=== PATIENT | male | born 2000 | race Caucasian/White ===

== ENCOUNTER 2023-03-16 14:58 | Emergency (ER) | payer MEDICAID, SELFPAY ==
[2023-03-16 14:59] VITALS: BP 154/84; PULSE 100; RESP 16; TEMP 36.6; O2SAT 100; BMI 48.3
--- NOTE | 2023-03-16 15:12 | EX.ED.DYSGE1 ---
HPI History of Present Illness Chief Complaint: Rash Detail of Chief Complaint: Rash Informant: patient Narrative Narrative: Patient presents the emergency department with complaint of a rash to her right arm as well as her back and left hand. Patient initially noticed a small red area on her right wrist yesterday. Today she noticed more lesions. They are pruritic. She tells me that she is currently staying at a hotel that probably is not the nicest hotel as they recently moved here from [place]. She is concerned about bedbugs but has not visualized or seen any bedbugs. She is not sure if this could be another insect or mosquito or fleas. She thought I might be able to tell based on the pattern. Patient otherwise has no medical history. Prior similar symptoms: No PFSH PFSH Medical History no medical history Allergy/AdvReac Type Severity Reaction Status Date / Time codeine Allergy Rash Verified 03/16/23 15:01 Surgical History no surgical history Social History Smoking Status: Never smoker ROS ROS ED Review of Systems ROS Unobtainable: other Constitutional Constitutional ED: Reports lethargy; Denies chills, fever(s), sweats or weight loss Eyes Eyes: Denies blurry vision, change in vision or diplopia ENT ENT ED: Denies rhinorrhea or sore throat Cardiovascular Cardiovascular: Denies chest pain, orthopnea or racing heartbeat Respiratory/Chest Respiratory/Chest: Denies cough, dyspnea, dyspnea on exertion, orthopnea or sputum Gastrointestinal Gastrointestinal: Denies abdominal pain, diarrhea, nausea or vomiting Genitourinary Genitourinary ED: Denies dysuria, hematuria or urinary frequency Musculoskeletal Musculoskeletal: Denies arthralgias, back pain, myalgias or neck pain Integumentary Reports rash; Denies abscess or Abrasions Neurologic Neurologic: Denies headache(s) or weakness Psychiatric Psychiatric: Denies anxiety, depression or suicidal thoughts Endocrine Endocrinology: Denies polydipsia, polyphagia or polyuria Hematologic/Lymphatic Hematologic/Lymphatic: Denies easy bleeding, easy bruising or lymphadenopathy Allergic/Immunologic Allergic/Immunologic ED: Denies mouth swelling, tongue swelling or urticaria EXAM Physical Exam Const Vital Signs: 03/16/23 14:59 Temperature 97.9 F Temperature Source Temporal Pulse Rate 100 Respiratory Rate 16 Blood Pressure 154/84 H Blood Pressure Mean 107 Pulse Ox 100 Oxygen Delivery Method Room Air Positive well nourished and well developed General Appearance ED: well developed and NAD HEENT Reports TM's clear and moist mucous membranes normocephalic and atraumatic; Negative for trauma or tenderness Tympanic Membrane ED: Yes TM's clear Eyes PERRL and EOMs intact bilaterally General Eye ED: Negative for pale conjunctiva or scleral icterus Neck no lymphadenopathy, supple and no JVD General: Negative for tenderness Chest Wall inspection of chest normal and palpation of chest normal Chest: Negative for tenderness Resp normal respiratory effort and clear to auscultation bilaterally Effort and Inspection: Negative for respiratory distress or pain with movement Auscultation: Negative for rhonchi, wheezes or diminished lung sounds Cardio regular rate, regular rhythm, S1 normal heart sound, S2 normal heart sound and no murmurs Peripheral Pulses: pulses 2+ throughout GI normal to inspection, nondistended, normoactive bowel sounds, soft to palpation, non-tender, non-distended and no masses Back/Spine no CVA tenderness and no thoracic nor lumbar tenderness Extremity General Extremety ED: Negative for edema General Extremity: Negative for edema Neuro oriented x3, CN's II-XII intact bilaterally, no sensory deficits noted and gait normal Sensorium / Orientation: awake, alert, oriented to person, oriented to place and oriented to time Motor Exam: strength 5/5 throughout and strength abnormal Psych mental status grossly normal Skin no wounds Skin Narrative: Patient has several red raised lesions involving the wrist of the right upper extremity as well as a small lesion on her left hand. Patient has 2 lesions on her back that are red and raised measuring approximately 1 cm in diameter. Clinically suspect insect bites as they are inflamed patient. No evidence of cellulitis. MDM MDM MDM Narrative Medical decision making narrative: Patient has what I suspect are insect bites to the right wrist and back and left hand. I do not feel antibiotics are indicated. She is advised to use Benadryl for the itching. She is advised to wash all her clothes in hot water and potentially find a new hotel to stay in. Advised to return if fever or increased erythema or cellulitic changes or condition worsening way. Patient given primary care physician follow-up to follow-up within the next 5 to 7 days. Discharge Plan Triage Chief Complaint: Rash ED Provider: Derek Flores Dx/Rx/DC Orders Clinical Impression: Insect bite Instructions: ED Insect Bite Primary Care Provider: [facility] Doctor,Out of Referrals: Bon French MD [Med Staff - Active Staff] - 3-5 Days [facility] Doctor,Out of [Primary Care Provider] - Disposition Disposition: Home, Self Care
== END 2023-03-16 15:29 | disposition home or self-care (01) ==
LOC: ED 15:28
PROVIDERS: Emergency Provider Emergency Medicine; Visit Provider Emergency Medicine
DX: S60.861A Insect bite (nonvenomous) of right wrist, initial encounter (principal); S60.562A Insect bite (nonvenomous) of left hand, initial encounter; W57.XXXA Bitten or stung by nonvenomous insect and other nonvenomous arthropods, initial encounter
CPT/HCPCS: 99282

== ENCOUNTER 2023-05-18 02:00 | Emergency (ER) | payer MEDICAID, SELFPAY ==
[2023-05-18 02:02] VITALS: BP 152/97; PULSE 88; RESP 16; TEMP 36.4; O2SAT 99; BMI 39.1
--- NOTE | 2023-05-18 02:21 | EDS_ITS ---
HPI History of Present Illness Chief Complaint: Allergic Reaction Narrative Narrative: Patient presents with intermittent rash. Patient states she first had rash about 2 months ago. She was seen here. Was only on the right hand a little area on her back and it was thought to be bug bites. Since that time she has had this intermittently. She will go sometimes a day or 2 without it. She will then have the rash mostly on the arms or legs. It will then go away and come back. Spots come and go and move. She has never had a single or large lesion. No trouble breathing. No nausea vomiting bowel or bladder complaints. No medications. 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 She is new to the area. They had moved up from [place] and are staying in a hotel. She has not seen bedbugs. When the lesions are present they do itch. She tried Benadryl once but does not think it really made a difference. She states she is covered with them now but in the morning they may even be gone. They will then come back again in a few days. She otherwise feels fine. PFSH [facility] Medical History no medical history Home Medications prednisone 20 mg tablet 60 mg (3 x 20 mg) PO DAILY #15 TABLETS 05/18/23 [Rx Last Taken Unknown] Allergy/AdvReac Type Severity Reaction Status Date / Time codeine Allergy Rash Verified 05/18/23 02:01 Surgical History no surgical history Social History Smoking Status: Never smoker ROS ROS ED Constitutional Constitutional ED: Denies chills or fever(s) Eyes Eyes: Denies blurry vision ENT ENT ED: Denies rhinorrhea or sore throat Cardiovascular Cardiovascular: Denies palpitations Respiratory/Chest Respiratory/Chest: Denies cough Gastrointestinal Gastrointestinal: Denies diarrhea, nausea or vomiting Musculoskeletal Musculoskeletal: Denies myalgias Integumentary Reports rash; Denies abscess Neurologic Neurologic: Denies headache(s), paresthesias or weakness Endocrine Endocrinology: Denies polydipsia or polyuria Hematologic/Lymphatic Hematologic/Lymphatic: Reports anemia Allergic/Immunologic Allergic/Immunologic ED: Reports urticaria; Denies mouth swelling or tongue swelling EXAM Physical Exam Narrative Exam Narrative: Patient awake alert pleasant sitting comfortably in bed. Very nontoxic. There are no lesions visible as I walk into the room. HEENT shows no lesions. I see no intraoral lesions. No petechiae. Tonsils are normal. Neck is supple with no meningismus. Lungs are clear bilaterally. Heart is regular. Abdomen is obese but soft and nontender. Extremities show no swelling or asymmetry but there is a rash as below. Skin: Patient has multiple lesions all of which range from about 1 to 2 cm. These are really on upper and lower extremities. I see a few on her lower flank on the right and the left but there really just behind the iliac crest area. None higher up on the torso. None are vesicular. None are weeping. A few of them are almost targetoid in shape but they just have an outer rim and not a 3 toned color with central spot. But they all yohana. Some are confluent. They are all raised and palpable. None are on the palms. They are on the dorsum of the hands though. Const Vital Signs: 05/18/23 02:02 Temperature 97.5 F L Temperature Source Temporal Pulse Rate 88 Respiratory Rate 16 Blood Pressure 152/97 H Blood Pressure Mean 115 Pulse Ox 99 MDM MDM MDM Narrative Medical decision making narrative: It is certainly possible these are bedbugs as they are staying evidently in a hotel that is not the nicest. But I cannot say that for certain. They may be hives which we can treat. Erythema multiforme is possible but the pattern is not quite typical. I recommend she take Claritin for several days to a week. She should attempt having the hotel cleaned in the bug to see if that will help. I will write for short course of steroids. Keeping a journal of when these occur and timing at work and diet may be helpful. Discharge Plan Triage Chief Complaint: Allergic Reaction ED Provider: Mark Diallo Dx/Rx/DC Orders Clinical Impression: Hives Instructions: ED Hives (Adult) Prescriptions: New prednisone 20 mg tablet 60 mg PO DAILY Qty: 15 0RF Primary Care Provider: Care Physician,No Primary Referrals: Macrina Cisneros MD [Non-Staff] - As soon as possible Care Physician,No Primary [Primary Care Provider] - Disposition Disposition: Home, Self Care
[2023-05-18] MEDS: predniSONE 20 MG Tablet 60 MG PO (02:35)
== END 2023-05-18 02:35 | disposition home or self-care (01) ==
LOC: ED 02:29
PROVIDERS: Emergency Provider Emergency Medicine; Visit Provider Emergency Medicine
DX: L50.9 Urticaria, unspecified (principal)
CPT/HCPCS: 99283

== ENCOUNTER 2023-07-17 22:00 | Emergency (ER) | payer MEDICAID, SELFPAY ==
[2023-07-17 22:01] VITALS: BP 157/90; PULSE 78; RESP 16; TEMP 36.7; O2SAT 98; BMI 47.0
[2023-07-17 23:06] LABS: hCG Titer Quant., Serum < 1 mIU/mL (1-3)
--- NOTE | 2023-07-17 23:08 | ED.VIS.FEGU ---
HPI HPI - Female History of Present Illness Chief Complaint: Female C/O Informant: patient Narrative Narrative: Patient is a 23-year-old female who gave roughly 16 months ago. She states that she was on the Depo shot with her last injection coming in December of this year. She states that she is currently not on any type of control or hormones. She states that her periods are regular and that this time she is 5 to 6 days late which is extremely abnormal for her and she is concerned for especially as she is sexually active without contraception. She states that in the past urine test have never resulted positive and they have needed blood tests and with concern for this she presents for evaluation PFSH PFSH Allergy/AdvReac Type Severity Reaction Status Date / Time codeine Allergy Rash Verified 07/17/23 22:05 Surgical History no surgical history Social History Smoking Status: Never smoker ROS ROS ED Constitutional Constitutional ED: Denies chills or fever(s) ENT ENT ED: Denies sore throat Cardiovascular Cardiovascular: Denies chest pain Respiratory/Chest Respiratory/Chest: Denies cough or dyspnea Gastrointestinal Gastrointestinal: Denies abdominal pain, diarrhea, nausea or vomiting Genitourinary Genitourinary ED: Denies dysuria Musculoskeletal Musculoskeletal: Denies myalgias Integumentary Denies rash Neurologic Neurologic: Denies headache(s) Hematologic/Lymphatic Hematologic/Lymphatic: Denies easy bleeding or easy bruising EXAM Physical Exam Const Vital Signs: 07/17/23 22:01 Temperature 98.0 F Temperature Source Temporal Pulse Rate 78 Respiratory Rate 16 Blood Pressure 157/90 H Blood Pressure Mean 112 Pulse Ox 98 Oxygen Delivery Method Room Air Positive well nourished, well developed and obese General Appearance ED: well developed Nutritional Appearance: obese HEENT HEENT Narrative: Normocephalic atraumatic Eyes PERRL and EOMs intact bilaterally General Eye ED: Negative for scleral icterus Neck supple Resp normal respiratory effort and clear to auscultation bilaterally Cardio regular rate and regular rhythm GI normal to inspection, nondistended, normoactive bowel sounds, soft to palpation, non-tender, non-distended and no masses Auscultation: normoactive bowel sounds Palpation: soft Extremity normal to inspection and full ROM Neuro oriented x3, CN's II-XII intact bilaterally and no sensory deficits noted Sensorium / Orientation: alert Motor Exam: strength 5/5 throughout Psych mental status grossly normal Skin no rashes or lesions noted MDM MDM MDM Narrative Medical decision making narrative: Patient present to the ER hypertensive otherwise with stable vitals. She denied abdominal pain or vaginal discharge or dysuria. She stated she is not on any type of hormone replacement therapy. She simply is late on her menstrual cycle and has concern for . At this time differential diagnosis is for early versus dysfunctional uterine bleeding. 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 The value is less than 1 indicating patient is not and therefore she is otherwise safe for discharge. History & Record Review Discussion w/independent historian: Patient Lab Data Labs: Laboratory Results - last 24 hr 07/17/23 22:38 HCG, Quant < 1 Discharge Plan Triage Chief Complaint: Female C/O ED Provider: Abdoul Lopez Dx/Rx/DC Orders Clinical Impression: Amenorrhea, unspecified Instructions: ED Amenorrhea Primary Care Provider: Care Physician,No Primary Referrals: Rosana Escalante MD [Med Staff - Active Staff] - Care Physician,No Primary [Primary Care Provider] - Activity Restrictions/Additional Instructions: Your test/hCG value was less than 1 which is negative. Follow-up with ENVELOPE CUTTER to discuss need for potential hormone use to normalize/regulate your menstrual cycle and return to the ER should you have any further concerns. Disposition Disposition: Home, Self Care
[2023-07-17 23:13] VITALS: PULSE 69; RESP 17; O2SAT 99
== END 2023-07-17 23:16 | disposition home or self-care (01) ==
PROVIDERS: Emergency Provider Emergency Medicine; Visit Provider Emergency Medicine
DX: N91.2 Amenorrhea, unspecified (principal); E66.9 Obesity, unspecified
CPT/HCPCS: 36415; 84702; 99282

== ENCOUNTER 2023-09-18 10:53 | Emergency (ER) | payer MEDICAID, SELFPAY ==
[2023-09-18 10:54] VITALS: BP 158/100; PULSE 88; RESP 16; TEMP 36.3; O2SAT 100; BMI 43.1
--- NOTE | 2023-09-18 11:17 | US_ITS ---
STUDY: FIRST TRIMESTER OBSTETRICAL ULTRASOUND REASON FOR EXAM: Female, 23 years old early preg, bleeding LMP: August 18, 2023. TECHNIQUE: Transvaginal TECHNICAL QUALITY: Adequate. PRIOR ULTRASOUND: None. FINDINGS: There is no demonstrated intrauterine gestational sac. There is no demonstrated yolk sac. The placenta is non-visualized. There is no demonstrated embryo ( pole). The estimated gestation age (EGA) by LMP is 4 weeks, 3 days. The estimated date of delivery (ZEINAB) by LMP is May 24, 2024. The uterus measures 8.9 cm x 6.5 cm x 4.1 cm. There is no demonstrated uterine fibroid. The cervix is closed. The right ovary measures 3.1 cm x 2.8 cm x 2.6 cm. There is no right ovarian cyst. There is no visualized right adnexal mass or complex lesion. The left ovary was not visualized. There is no fluid in the cul de sac. US/Transvaginal w/Preg US IMPRESSION: No intrauterine gestation is seen. Electronically Signed: Alberto Turk MD at 14:44 EST ,
[2023-09-18 11:38] LABS: Absolute Lymphocyte Count 3.09 X10^3/uL (0.83-4.51); Absolute Neutrophil Count 5.9 X10^3/uL (2.0-7.7); Basophil# 0.04 X10^3/uL; Basophil% 0.4 % (0-1); Eosinophil# 0.02 X10^3/uL; Eosinophils% 0.2 % (0-5); Hematocrit 40.7 % (37-47); Hemoglobin 12.7 g/dL (12.0-15.0); Lymphocyte # 3.09 X10^3/ul (0.83-4.51); Lymphocyte % 31.7 % (19-41); Mean Corp Hgb Conc 31.2 g/dL (32-36); Mean Corpuscular Hgb 24.2 pg (27.0-32.0); Mean Corpuscular Volume 77.7 fL (81-99); Mean Platelet Vol. 10.4 fl (6.2-12.0); Monocyte# 0.64 X10^3/uL; Monocyte% 6.6 % (0-10); NRBC Flagged by Analyzer 0 % (0-5); Neutrophil # 5.94 X10^3/uL (2.7-7.7); Neutrophil % 60.8 % (47-70); Platelet Count 350 K/mm3 (150-450); RBC Distribution Width CV 16.3 % (11.6-14.6); Red Blood Count 5.24 M/mm3 (4.2-5.4); White Blood Count 9.8 K/mm3 (4.4-11.0)
--- NOTE | 2023-09-18 11:57 | EDS_ITS ---
HPI HPI - Female
--- NOTE | 2023-09-18 11:57 | ED.VIS.FEGU ---
HPI HPI - Female History of Present Illness Chief Complaint: Informant: patient Narrative Narrative: Patient states she missed her period 2 days ago, started spotting, so she did a home test that was positive. She denies having any pelvic/abdominal pain, syncope, systemic symptoms of any kind. She is urinating normally. Vaginal bleeding has not been heavy. She has had RhoGAM in the past. PFSH PFSH Medical History no medical history no medical history Home Medications NK 09/18/23 [History Last Taken Unknown] Allergy/AdvReac Type Severity Reaction Status Date / Time codeine Allergy Rash Verified 09/18/23 11:10 Surgical History no surgical history Social History Smoking Status: Never smoker ROS ROS ED Constitutional Constitutional ED: Denies chills or fever(s) Eyes Eyes: Denies change in vision or diplopia ENT ENT ED: Denies rhinorrhea or sore throat Cardiovascular Cardiovascular: Denies chest pain or palpitations Respiratory/Chest Respiratory/Chest: Denies cough or dyspnea Gastrointestinal Gastrointestinal: Denies abdominal pain, diarrhea, nausea or vomiting Genitourinary Genitourinary ED: Reports as per HPI, LMP (females 10-50) Details: Comment: (08/16/23) and vaginal bleeding; Denies dysuria or hematuria Musculoskeletal Musculoskeletal: Denies back pain or neck pain Integumentary Denies abscess or rash Neurologic Neurologic: Denies headache(s), paresthesias or weakness Psychiatric Psychiatric: Denies anxiety or suicidal thoughts EXAM Physical Exam Const Vital Signs: 09/18/23 10:54 Temperature 97.4 F L Temperature Source Temporal Pulse Rate 88 Respiratory Rate 16 Blood Pressure 158/100 H Blood Pressure Mean 119 Pulse Ox 100 Oxygen Delivery Method Room Air Positive well nourished, well developed and obese General Appearance ED: well developed and NAD Nutritional Appearance: obese HEENT Reports moist mucous membranes normocephalic and atraumatic Eyes PERRL and EOMs intact bilaterally Neck full ROM and supple Resp normal respiratory effort and clear to auscultation bilaterally Cardio regular rate, regular rhythm and no murmurs Rate: Negative for tachycardic GI non-tender and non-distended Auscultation: normoactive bowel sounds Palpation: soft Speculum Exam - Vagina: vaginal bleeding Back/Spine no CVA tenderness General Back: other FROM Extremity normal to inspection General Extremety ED: Negative for edema, pulses abnormal or tenderness General Extremity: Negative for edema or pulses abnormal Neuro oriented x3, CN's II-XII intact bilaterally and no sensory deficits noted Sensorium / Orientation: awake and alert Motor Exam: strength 5/5 throughout Skin no rashes or lesions noted and no wounds MDM MDM MDM Narrative Medical decision making narrative: Quantitative hCG was obtained it is only 365, transvaginal ultrasound was obtained in order to evaluate for the possibility of an ectopic as discussed with the patient which she was amenable to, I reviewed the images and the result which is basically negative, I agree with this result. This does not rule out ectopic , nor intrauterine since her quantitative hCG is so low. Her blood type is B-, therefore RhoGAM indicated and was given here in emergency department 300 mcg IM. Blood counts are good she is clinically doing well stable vital signs, discussed with Dr. Casas who is on-call for OB advises her to call the office to set up outpatient appointment and repeat 48-hour quantitative hCG, given appropriate instructions for discharge and return. Lab Data Attestation: I reviewed the patient's lab results. Labs: Laboratory Results - last 24 hr 09/18/23 11:25 WBC 9.8 RBC 5.24 Hgb 12.7 Hct 40.7 MCV 77.7 L MCH 24.2 L MCHC 31.2 L RDW Std Deviation 46.0 H RDW Coeff of Pepe 16.3 H Plt Count 350 MPV 10.4 Immature Gran % (Auto) 0.300 Neut % (Auto) 60.8 Lymph % (Auto) 31.7 [place] % (Auto) 6.6 Eos % (Auto) 0.2 Baso % (Auto) 0.4 Absolute Neuts (auto) 5.9 Absolute Lymphs (auto) 3.09 Nucleated RBC % 0 HCG, Quant 365 H Blood Type B NEGATIVE Radiography Diagnostic Testing: Clinical Impression(s) from Imaging Studies Obstetrics Ultrasound 09/18/23 11:17 IMPRESSION: No intrauterine gestation is seen. Electronically Signed: Alberto Turk MD at 14:44 EST , Management Discussion w/another healthcare provider: Health Technical Writer ([facility]) Discharge Plan Triage Chief Complaint: ED Provider: Shawn Michaud Dx/Rx/DC Orders Clinical Impression: with early threatened Instructions: ED Possible Miscarriage ... Prescriptions: No Action NK Stand Alone Forms: ED Work / School Excuse Primary Care Provider: Care Physician,No Primary Referrals: Micah Casas MD [Med Staff - Active Staff] - As soon as possible (Call for appointment to be seen by first available collection systems administrator, and to get set up for a 48-hour quantitative hCG repeat) Disposition Disposition: Home, Self Care
[2023-09-18 12:06] LABS: hCG Titer Quant., Serum 365 mIU/mL (1-3)
--- NOTE | 2023-09-18 13:12 | CM.ED ---
Social Work Per chart review, pt does not have PCP or OBGYN. SW introduced self and role to patient. SW provided support as patient is here for being newly . Pt reports uncertainty about having another child as her son is almost 2. Pt reports recently [place] and is not set up with a physician here. SW provided PCP/[facility] lists, local child and family resources, center, and [facility] list. SW did encourage patient to look into center online prior to visiting to ensure it is appropriate for her needs. SW provided emotional support. Pt denies any further SW needs at this time. Cassia Cahcko [employer] MACHINE OPERATOR, PRESS PIPE INSPECTOR
[2023-09-18 15:25] VITALS: PULSE 78; RESP 15; O2SAT 98
== END 2023-09-18 15:26 | disposition home or self-care (01) ==
PROVIDERS: Emergency Provider Emergency Medicine; Visit Provider Emergency Medicine
DX: O20.0 Threatened abortion (principal); O99.210 Obesity complicating pregnancy, unspecified trimester; E66.9 Obesity, unspecified; Z3A.00 Weeks of gestation of pregnancy not specified
CPT/HCPCS: 76817; 84702; 85025; 86900; 86901; 96372; 99283; A4216; J2790

== ENCOUNTER → 2023-09-20 | Outpatient (CLI) | payer MEDICAID, SELFPAY ==
[2023-09-20 14:04] LABS: hCG Titer Quant., Serum 724 mIU/mL (1-3)
== END | disposition home or self-care (01) ==
LOC: LAB 13:04
PROVIDERS: Referring Provider Obstetrics & Gynecology; Visit Provider Obstetrics & Gynecology
DX: O20.0 Threatened abortion (principal); Z3A.00 Weeks of gestation of pregnancy not specified
CPT/HCPCS: 36415; 84702

== ENCOUNTER 2023-10-13 23:09 | Emergency (ER) | payer MEDICAID, SELFPAY ==
[2023-10-13 23:10] VITALS: BP 141/95; PULSE 102; RESP 16; TEMP 36.6; O2SAT 100; BMI 42.5
--- NOTE | 2023-10-13 23:34 | ED.VIS.DYS ---
HPI History of Present Illness Chief Complaint: Cold Sx Informant: patient Narrative Narrative: 23-year-old female presenting to the emergency room with nasal congestion and fever. Patient states that on Friday she began to have nasal congestion sore throat fever fatigue and bodyaches. She notes decreased appetite. She reports that she is 9 weeks . She states that she is very worried because she is high risk. She believes that she is seeing [facility] for obstetrics. She notes nausea but does not wish any medicine for it. She states that multiple family members are sick with RSV. Her sister was coming to the emergency room so she came at the request of her mom. She denies any vaginal bleeding or leakage of fluid. She does note some pelvic cramping. PFSH PFSH Home Medications NK 09/18/23 [History Last Taken Unknown] Allergy/AdvReac Type Severity Reaction Status Date / Time codeine Allergy Rash Verified 10/13/23 23:12 Social History Smoking Status: Never smoker ROS ROS ED Constitutional Constitutional ED: Reports chills and fever(s); Denies weight loss Eyes Eyes: Denies change in vision or diplopia ENT ENT ED: Reports rhinorrhea and sore throat; Denies ear pain Cardiovascular Cardiovascular: Denies chest pain, orthopnea, palpitations or racing heartbeat Respiratory/Chest Respiratory/Chest: Reports cough; Denies dyspnea or orthopnea Gastrointestinal Gastrointestinal: Reports nausea; Denies abdominal pain, diarrhea or vomiting Genitourinary Genitourinary ED: Reports other Details: Pelvic cramping ; Denies dysuria, hematuria or urinary frequency Musculoskeletal Musculoskeletal: Reports myalgias; Denies arthralgias Integumentary Denies abscess or rash Neurologic Neurologic: Denies headache(s) or weakness Psychiatric Psychiatric: Denies anxiety, depression, suicidal ideation or suicidal thoughts Endocrine Endocrinology: Denies polydipsia, polyphagia or polyuria Allergic/Immunologic Allergic/Immunologic ED: Denies mouth swelling, tongue swelling or urticaria EXAM Physical Exam Const Vital Signs: 10/13/23 23:10 Temperature 97.9 F Temperature Source Temporal Pulse Rate 102 H Respiratory Rate 16 Blood Pressure 141/95 H Blood Pressure Mean 110 Pulse Ox 100 Oxygen Delivery Method Room Air Positive well nourished, well developed and obese General Appearance ED: well developed Nutritional Appearance: obese HEENT Reports normocephalic, head/scalp atraumatic and moist mucous membranes HEENT Narrative: Nasal congestion. Evidence of postnasal drip Eyes PERRL and EOMs intact bilaterally Neck no lymphadenopathy, supple and no JVD Resp normal respiratory effort and clear to auscultation bilaterally Cardio regular rate, regular rhythm and no murmurs GI normal to inspection, nondistended, normoactive bowel sounds and non-tender Palpation: soft Back/Spine no CVA tenderness and normal ROM Extremity normal to inspection General Extremety ED: Negative for edema General Extremity: Negative for edema Neuro oriented x3 and CN's II-XII intact bilaterally Sensorium / Orientation: alert Motor Exam: strength 5/5 throughout Psych mental status grossly normal Mood & Affect: Negative for depressed or tearful Skin no rashes or lesions noted and no wounds MDM MDM MDM Narrative Medical decision making narrative: Bedside ultrasound shows a single live IUP with a heart rate of 147 bpm. Clinically the patient has a viral URI. Given that most members of her family has RSV I suspect that this is that. She was given reassurance. Would recommend continued supportive care Discharge Plan Triage Chief Complaint: Cold Sx ED Provider: Froilan Singer Dx/Rx/DC Orders Prescriptions: No Action NK Primary Care Provider: Care Physician,No Primary Referrals: Care Physician,No Primary [Primary Care Provider] -
== END 2023-10-13 23:48 | disposition home or self-care (01) ==
LOC: ED 23:48
PROVIDERS: Emergency Provider Emergency Medicine; Visit Provider Emergency Medicine
DX: O99.519 Diseases of the respiratory system complicating pregnancy, unspecified trimester (principal); O99.210 Obesity complicating pregnancy, unspecified trimester; J06.9 Acute upper respiratory infection, unspecified; Z3A.00 Weeks of gestation of pregnancy not specified
CPT/HCPCS: 99282

== ENCOUNTER → 2023-10-23 | Outpatient (CLI) | payer MEDICAID, SELFPAY ==
[2023-10-23 16:20] LABS: Protein, Urine (Random) 58.4 mg/dL (<11.9); Protein:Creat Ratio 204 mg/g CRE (0-200)
[2023-10-23 16:35] LABS: Amphetamine Urine VISTA NEGATIVE (<1000 ng/mL); Barbiturate Urine VISTA NEGATIVE (< 200 ng/mL); Benzodiazepine Urine VISTA NEGATIVE (< 200 ng/mL); Cocaine Urine VISTA NEGATIVE (< 300 ng/mL); Ecstacy Urine VISTA NEGATIVE (< 500 ng/mL); Methadone Urine VISTA NEGATIVE (< 300 ng/mL); PCP Urine VISTA NEGATIVE (< 25 ng/mL); THC Urine VISTA POSITIVE (< 50 ng/mL); Vista UDS pH Range 6
[2023-10-27 22:07] LABS: Chlamydia By Nucleic Acid AMP Negative (Negative); Gonococcus By Nucleic Acid AMP Negative (Negative)
== END | disposition home or self-care (01) ==
LOC: LABSPEC 15:06
PROVIDERS: Referring Provider Advanced Practice Midwife; Visit Provider Advanced Practice Midwife
DX: Z34.90 Encounter for supervision of normal pregnancy, unspecified, unspecified trimester (principal)
CPT/HCPCS: 80307; 82570; 84156; 87086; 87088; 87491; 87591

== ENCOUNTER → 2023-11-21 | Outpatient (CLI) | payer MEDICAID, SELFPAY ==
[2023-11-21 15:24] LABS: Absolute Lymphocyte Count 2.34 X10^3/uL (0.83-4.51); Absolute Neutrophil Count 6.5 X10^3/uL (2.0-7.7); Basophil# 0.03 X10^3/uL; Basophil% 0.3 % (0-1); Eosinophil# 0.04 X10^3/uL; Eosinophils% 0.4 % (0-5); Hemoglobin 12.1 g/dL (12.0-15.0); Lymphocyte # 2.34 X10^3/ul (0.83-4.51); Lymphocyte % 24.3 % (19-41); Mean Corp Hgb Conc 31.8 g/dL (32-36); Mean Corpuscular Hgb 25.4 pg (27.0-32.0); Mean Corpuscular Volume 79.8 fL (81-99); Mean Platelet Vol. 10.1 fl (6.2-12.0); Monocyte# 0.62 X10^3/uL; Monocyte% 6.5 % (0-10); NRBC Flagged by Analyzer 0 % (0-5); Neutrophil # 6.54 X10^3/uL (2.7-7.7); Neutrophil % 68.1 % (47-70); Platelet Count 282 K/mm3 (150-450); RBC Distribution Width CV 15.5 % (11.6-14.6); RBC Distribution Width SD 44.9 fl (35.1-43.9); Red Blood Count 4.76 M/mm3 (4.2-5.4); White Blood Count 9.6 K/mm3 (4.4-11.0)
[2023-11-21 15:57] LABS: ALB/GLOB Ratio 0.6 RATIO (0.9-2.4); AST(SGOT) 24 U/L (15-37); Alanine Aminotransfer ALT/SGPT 47 U/L (13-56); Albumin, Serum 2.8 g/dL (3.2-5.0); Alkaline Phosphatase 113 U/L (45-117); Anion Gap 2 (5-15); BUN 6 mg/dL (7-18); BUN/Creat Ratio 9.5 RATIO (10-20); Calcium,Total 9.3 mg/dL (8.5-10.1); Chloride 105 mmol/L (98-107); Creatinine, Serum 0.63 mg/dL (0.55-1.02); EST Glomerular Filtration Rate 126 mL/min (>60); Est Glom Filt Rate - Afr Amer 152 mL/min (>60); Globulin 4.8 g/dL (2.2-4.2); Glucose 81 mg/dL (74-106); Potassium 3.9 mmol/L (3.5-5.1); Protein, Total 7.6 g/dL (6.4-8.2); Sodium Level 133 mmol/L (136-145)
--- OUTSIDE RECORDS SUMMARY | 2023-11-21 17:44 | XMS RPT_ITS | CCD ---
Author Name Unknown Address [address] [facility] [address] [place] [address] Organization [facility] Care Team Providers Care Thermal Technician Name Role Phone PHYSICIAN, NONE Primary Care Physician Unavailab KAMRAN Rhoades MD Attending Unavailable PHYSICIAN, NONE Primary Care Unavailable CRISTY ALEXANDER DO Attending Unavailable PHYSICIAN, NONE Primary Care Unavailable Allergies Allergy Classification Reported Allergen(s) Allergy Type Date of Onset Reaction(s) Facility (2 sources) Codeine; Translations: [codeine] Drug Allergy [facility] Medications Current Medications Medication Drug Class(es) Dates Sig (Normalized) Sig (Original) cyclobenzaprine hydrochloride 10 mg oral tablet (1 source) Muscle Relaxant Start: 08-30-2023 End: 09-04-2023 cyclobenzaprine 10 mg oral tablet Dose : 10 mg = 1 tab(s), Oral, TID, X 5 day(s), # 20 tab(s), 0 Refill(s), 09/04/23 10:50:00 AM EST Start Date: 08/30/23 Stop Date: 09/04/23 Status: Ordered predniSONE 20 mg oral tablet (1 source) Start: 05-26-2023 End: 06-01-2023 predniSONE 20 mg oral tablet Dose : 40 mg = 2 tab(s), Oral, qDay, X 6 day(s), # 12 tab(s), 0 Refill(s), 06/01/23 12:59:00 PM EDT Start Date: 05/26/23 Stop Date: 06/01/23 Status: Ordered Problems Problem Classification Problem Date Documented Da te Episodic/Chronic Other connective tissue disease (1 source) Spasm; Translations: [Other muscle spasm] Onset: 08-30-2023 Episodic Vital Signs Date Time Vital Sign Value Performing Clinician Faci lity 08-30-2023 10:45-0500 Body height 172.7 cm CRISTY ALEXANDER DO [facility] 08-30-2023 10:45-0500 Body temperature 98.78 [degF] CRISTY ALEXANDER DO [facility] 08-30-2023 10:45-0500 Body weight 136.4 kg CRISTY ALEXANDER DO [facility] 08-30-2023 10:45-0500 Diastolic Blood Pressure Non-Invasive 76 1 CRISTY ALEXANDER DO [facility] 08-30-2023 10:45-0500 Heart rate 72 /min CRISTY ALEXANDER DO [facility] 08-30-2023 10:45-0500 Respiratory rate 20 /min CRISTY ALEXANDER DO [facility] 08-30-2023 10:45-0500 Systolic Blood Pressure Non-Invasive 111 1 CRISTY ALEXANDER DO [facility] 05-26-2023 11:38-0400 Body temperature 98.06 [degF] KAMRAN BOSTON MD [facility] 05-26-2023 11:38-0400 Diastolic Blood Pressure Non-Invasive 94 1 KAMRAN BOSTON MD [facility] 05-26-2023 11:38-0400 Heart rate 73 /min KAMRAN BOSTON MD [facility] 05-26-2023 11:38-0400 Respiratory rate 16 /min KAMRAN BOSTON MD [facility] 05-26-2023 11:38-0400 Systolic Blood Pressure Non-Invasive 168 1 KAMRAN BOSTON MD [facility] Encounters Encounter Date Encounter Type Care Provider Facility Start: 08-30-2023 End: 08-30-2023 Emergency department patient visit CRISTY ALEXANDER DO Facility:B Start: 08-30-2023 End: 08-30-2023 Emergency department patient visit CRISTY ALEXANDER DO [facility] Start: 05-26-2023 End: 05-26-2023 Emergency department patient visit KAMRAN BOSTON MD Facility:B Start: 05-26-2023 End: 05-26-2023 Emergency department patient visit KAMRAN BOSTON MD [facility] Payers Date Payer Category Payer Unknown [id number] 2002 Unknown [id number] 2002 Unknown [id number] Social History Date Type Detail Facility Start: 05-26-2023 Tobacco smoking status Never s moked tobacco (finding) [facility] Sex Assigned At Female [facility] Functional Status Date Assessment Result Facility 08-30-2023 Functional Status Independent [facility] 05-26-2023 Functional Status Standard Safet y ID band on, Allergy Band on, Call device within reach, Bed in low position, Wheels locked, Bedside Cart Locked, Safety level maintained [facility] Mental Status Date Assessment Result Facility 08-30-2023 Mental Status Orientation Oriented x 4 [facility] 05-26-2023 Mental Status Orientation Oriented x 4 [facility] 05-26-2023 Mental Status [facility] Discharge instructions 08-30-2023 Note Date & Type Note Facility 08-30-2023 Hospital Discharg e instructions Patient Education 08/30/2023 10:50:43 Neck Spasm, No Trauma Neck Spasm A spasm of the neck muscles can happen after a sudden awkward neck movement. Sleeping with your neck in a crooked position can also cause spasm. Some people respond to emotional stress by tensing the muscles of their neck, shoulders, and upper back. If neck spasm lasts long enough, it can cause a headache. The treatment described below will usually help the pain to go away in 5 to 7 days. Pain that continues may need further evaluation or other types of treatment such as physical therapy. Home care Rest and relax the muscles. Use a comfortable pillow that supports the head and keeps the spine in a neutral position. The position of the head should not be tilted forward or backward. A rolled up towel may help for a custom fit. Some people find relief with heat. Heat can be applied with either a warm shower or bath or a moist towel heated in the microwave and massage. Others prefer cold packs. You can make an ice pack by filling a plastic bag that seals at the top with ice cubes or crushed ice and then wrapping it with a thin towel. Try both and use the method that feels best for 15 to 20 minutes, several times a day. Whether using ice or heat, be careful that you don't injure your skin. Never put ice directly on the skin. Always wrap the ice in a towel or other type of cloth. This is very important, especially in people with poor skin sensation. Try to reduce your stress level. Emotional stress can lead to neck muscle tension and get in the way of or delay the healing process. You may use qyse-myd-yvdityq pain medicine to control pain, unless another medicine was prescribed. If you have chronic liver or kidney disease or ever had a stomach ulcer or gastrointestinal bleeding, talk with your healthcare provider before using these medicines. Follow-up care Follow up with your healthcare provider if your symptoms don't show signs of improvement after one week. Physical therapy or further tests may be needed. If X-rays, CT scans, or MRI scans were taken, you will be told of any new findings that may affect your care. Call 911 Call 911 if you have: Sudden weakness or numbness in one or both arms or legs Neck swelling, trouble with or painful swallowing Trouble breathing Chest pain When to seek medical advice Call your healthcare provider right away if any of these occur: Pain becomes worse or spreads into one or both arms or legs Increasing headache with nausea or vomiting Fever of 100.4 F (38 C) or higher, or as directed by your healthcare provider [place]on [phone] [employer]. [address] [place] [address], [place] [address]. All rights reserved. This information is not intended as a substitute for professional medical care. Always follow your healthcare professional's instructions. Follow Up Care 08/30/2023 10:39:38 With:Call Physician Referral Address:Unknown When:2-4 days [facility] Clinical Note 08-30-2023 Note Date & Type Note Facility 08-30-2023 Note Discharge Instructions Thank you for allowing [facility] to assist you with your healthcare needs. The following is important discharge information regarding your hospital visit. Diagnosis from Today's Visit Muscle spasm of head and/or neck Neck pain What to Do Next Instructions from Your Care Team No qualifying data available. Post Acute Orders No qualifying data available. You Need to Schedule the Following Appointments Follow Up with Call Physician Referral When Within 2-4 days Allergies codeine Medications Please ask your primary doctor or pharmacist before taking any other medication not listed, including over the counter drugs, herbal medications, vitamins and or supplements as they may interact with your home medications. What How Much When Instructions Last Dose New cyclobenzaprine (cyclobenzaprine 10 mg oral tablet) 1 tab(s) by mouth Three (3) times a day Duration: 5 Days Printed Prescription Please take this list to your next doctor s visit. Bring all medications you take, including over the counter medications, herbals and other supplements with you to your doctor s visit. Patients and families are reminded to discard old lists and to update any records with all medication providers or retail pharmacies. Medication Leaflets cyclobenzaprine (nataliia welch) Amrix, Fexmid What is the most important information I should know about cyclobenzaprine? You should not use cyclobenzaprine if you have a thyroid disorder, heart block, congestive heart failure, a heart rhythm disorder, or you have recently had a heart attack. Do not use cyclobenzaprine if you have taken an MAO inhibitor in the past 14 days, such as isocarboxazid, linezolid, phenelzine, rasagiline, selegiline, or tranylcypromine. What is cyclobenzaprine? Cyclobenzaprine is a muscle relaxant. It works by blocking nerve impulses (or pain sensations) that are sent to your brain. Cyclobenzaprine is used together with rest and physical therapy to relieve muscle spasms caused by painful conditions such as an injury. Cyclobenzaprine may also be used for purposes not listed in this medication guide. What should I discuss with my healthcare provider before taking cyclobenzaprine? You should not use cyclobenzaprine if you are allergic to it, or if you have: a thyroid disorder; heart block, heart rhythm disorder, congestive heart failure; or if you have recently had a heart attack. Cyclobenzaprine is not approved for use by anyone younger than 15 years old. Do not use cyclobenzaprine if you have taken an MAO inhibitor in the past 14 days. A dangerous drug interaction could occur. MAO inhibitors include isocarboxazid, linezolid, phenelzine, rasagiline, selegiline, and tranylcypromine. Some medicines can interact with cyclobenzaprine and cause a serious condition called serotonin syndrome. Be sure your doctor knows if you also take stimulant medicine, opioid medicine, herbal products, or medicine for depression, mental illness, Parkinson's disease, migraine headaches, serious infections, or prevention of nausea and vomiting. Ask your doctor before making any changes in how or when you take your medications. Tell your doctor if you have ever had: liver disease; glaucoma; enlarged prostate; or problems with urination. It is not known whether this medicine will harm an unborn baby. Tell your doctor if you are or plan to become . It may not be safe to breast-feed while using this medicine. Ask your doctor about any risk. Older adults may be more sensitive to the effects of this medicine. How should I take cyclobenzaprine? Follow all directions on your prescription label and read all medication guides or instruction sheets. Your doctor may occasionally change your dose. Use the medicine exactly as directed. Cyclobenzaprine is usually taken once daily for only 2 or 3 weeks. Follow your doctor's dosing instructions very carefully. Swallow the capsule whole and do not crush, chew, break, or open it. Take the medicine at the same time each day. Call your doctor if your symptoms do not improve after 3 weeks, or if they get worse. Store at room temperature away from moisture, heat, and light. What happens if I miss a dose? Take the medicine as soon as you can, but skip the missed dose if it is almost time for your next dose. Do not take two doses at one time. What happens if I overdose? Seek emergency medical attention or call the Poison Help line at . An overdose of cyclobenzaprine can be fatal. Overdose symptoms may include severe drowsiness, vomiting, fast heartbeats, tremors, agitation, or hallucinations. What should I avoid while taking cyclobenzaprine? Avoid driving or hazardous activity until you know how this medicine will affect you. Your reactions could be impaired. Avoid drinking alcohol. Dangerous side effects could occur. What are the possible side effects of cyclobenzaprine? Get emergency medical help if you have signs of an allergic reaction: hives; difficult breathing; swelling of your face, lips, tongue, or throat. Stop using cyclobenzaprine and call your doctor at once if you have: fast or irregular heartbeats; chest pain or pressure, pain spreading to your jaw or shoulder; or sudden numbness or weakness (especially on one side of the body), slurred speech, balance problems. Seek medical attention right away if you have symptoms of serotonin syndrome, such as: agitation, hallucinations, fever, sweating, shivering, fast heart rate, muscle stiffness, twitching, loss of coordination, nausea, vomiting, or diarrhea. Serious side effects may be more likely in older adults. Common side effects may include: drowsiness, tiredness; headache, dizziness; dry mouth; or upset stomach, nausea, constipation. This is not a complete list of side effects and others may occur. Call your doctor for medical advice about side effects. You may report side effects to FDA at 2-667-EAN-5304. What other drugs will affect cyclobenzaprine? Using cyclobenzaprine with other drugs that make you drowsy can worsen this effect. Ask your doctor before using opioid medication, a sleeping pill, a muscle relaxer, or medicine for anxiety or seizures. Tell your doctor about all your other medicines, especially: bupropion (Zyban, for smoking cessation); meperidine; tramadol; verapamil; cold or allergy medicine that contains an antihistamine (Benadryl and others); medicine to treat Parkinson's disease; medicine to treat excess stomach acid, stomach ulcer, motion sickness, or irritable bowel syndrome; medicine to treat overactive bladder; or bronchodilator asthma medication. This list is not complete. Other drugs may affect cyclobenzaprine, including prescription and pnrd-kfm-rdfkoii medicines, vitamins, and herbal products. Not all possible drug interactions are listed here. Where can I get more information? Your pharmacist can provide more information about cyclobenzaprine. Remember, keep this and all other medicines out of the reach of children, never share your medicines with others, and use this medication only for the indication prescribed. Every effort has been made to ensure that the information provided by [employer]. ('[employer]') is accurate, up-to-date, and complete, but no guarantee is made to that effect. Drug information contained herein may be time sensitive. [employer] information has been compiled for use by healthcare practitioners and consumers in the [place] and therefore [employer] does not warrant that uses outside of the [place] are appropriate, unless specifically indicated otherwise. [employer] drug information does not endorse drugs, diagnose patients or recommend therapy. [employer] drug information is an informational resource designed to assist licensed healthcare practitioners in caring for their patients and/or to serve consumers viewing this service as a supplement to, and not a substitute for, the expertise, skill, knowledge and judgment of healthcare practitioners. The absence of a warning for a given drug or drug combination in no way should be construed to indicate that the drug or drug combination is safe, effective or appropriate for any given patient. [employer] does not assume any responsibility for any aspect of healthcare administered with the aid of information [employer] provides. The information contained herein is not intended to cover all possible uses, directions, precautions, warnings, drug interactions, allergic reactions, or adverse effects. If you have questions about the drugs you are taking, check with your doctor, nurse or pharmacist. Copyright 9978-7179 [employer]. Version: 7.01. Revision Date: 05/23/2023. Education Materials Neck Spasm A spasm of the neck muscles can happen after a sudden awkward neck movement. Sleeping with your neck in a crooked position can also cause spasm. Some people respond to emotional stress by tensing the muscles of their neck, shoulders, and upper back. If neck spasm lasts long enough, it can cause a headache. The treatment described below will usually help the pain to go away in 5 to 7 days. Pain that continues may need further evaluation or other types of treatment such as physical therapy. Home care Rest and relax the muscles. Use a comfortable pillow that supports the head and keeps the spine in a neutral position. The position of the head should not be tilted forward or backward. A rolled up towel may help for a custom fit. Some people find relief with heat. Heat can be applied with either a warm shower or bath or a moist towel heated in the microwave and massage. Others prefer cold packs. You can make an ice pack by filling a plastic bag that seals at the top with ice cubes or crushed ice and then wrapping it with a thin towel. Try both and use the method that feels best for 15 to 20 minutes, several times a day. Whether using ice or heat, be careful that you don't injure your skin. Never put ice directly on the skin. Always wrap the ice in a towel or other type of cloth. This is very important, especially in people with poor skin sensation. Try to reduce your stress level. Emotional stress can lead to neck muscle tension and get in the way of or delay the healing process. You may use ildf-ell-qrqrdws pain medicine to control pain, unless another medicine was prescribed. If you have chronic liver or kidney disease or ever had a stomach ulcer or gastrointestinal bleeding, talk with your healthcare provider before using these medicines. Follow-up care Follow up with your healthcare provider if your symptoms don't show signs of improvement after one week. Physical therapy or further tests may be needed. If X-rays, CT scans, or MRI scans were taken, you will be told of any new findings that may affect your care. Call 911 Call 911 if you have: Sudden weakness or numbness in one or both arms or legs Neck swelling, trouble with or painful swallowing Trouble breathing Chest pain When to seek medical advice Call your healthcare provider right away if any of these occur: Pain becomes worse or spreads into one or both arms or legs Increasing headache with nausea or vomiting Fever of 100.4 F (38 C) or higher, or as directed by your healthcare provider [place] [phone] [employer]. [address] [place] [address], [place] [address]. All rights reserved. This information is not intended as a substitute for professional medical care. Always follow your healthcare professional's instructions. Additional Information VACCINATE! IT SAVES LIVES! Members of the community who have not yet received the COVID-19 vaccine and would like to receive it can visit one of [facility] vaccine clinics. There are many vaccine clinic locations within the [facility]. For locations and available times, please visit www.[email or web address].[place].gov/. It is important to note that some COVID mobile vaccine clinics are held outdoors and may be canceled in rainy or stormy conditions. To learn more about pediatric vaccinations (ages 5-11), we invite you to visit the [email or web address] [facility] webpage. [email or web address]/pages/2 588-Adbkz-Jtvimfnzzyh-Frequently-Asked -Questions.html To learn more about the COVID-19 vaccine, we invite you to visit the CDC website for a list of frequently asked questions. https://www.cdc.gov/coronavirus/2019-n cov/vaccines/faq.html [facility] Patient Portal Access Instructions: Stay connected with your healthcare team and access your personal medical information anytime with the [facility] Patient Portal. If you would like a full copy of your medical records please contact the [facility] Medical Records Department Friday through Friday between 8a.m. and 4:30p.m. Please follow the directions below to access the portal: 1.Access the email account you provided upon registration to the [facility].2.Look for an invitation email from [facility].3.Open the email and access the invitation link: Accept Invitation to [facility]4.Fill in the required silva to create your account. Sign into [email or web address] with your username and password that you created in the above steps to stay up to date. You can then view a summary of results, a summary of your visits, and the ability to download your summaries to your computer or send the information securely to a physician. Remember that your healthcare information is confidential, so carefully consider who you will allow to register on the [facility] Patient Portal for access to your information. You can also access the [email or web address] [facility] Patient Portal on the [employer]. Simply click on Health Records under Health Data and then click on the [email or web address] logo. HOW TO SAFELY DISPOSE OF PRESCRIPTION MEDICATIONS Please use one of the following methods to safely dispose of your unused medications. 1.Use a drug disposal kit: the drug disposal pouch allows you to safely discard your old and unused drugs. Ask your nurse to give you one when you are discharged.2.Visit a local take-back location: Many local pharmacies and police departments have programs that collect old and unwanted prescription drugs. Call your local pharmacy or go to http://Wavecraft.WeWork/4J1Iq3f to find one close to you.3.Make use of household items: Use cat litter or old coffee grounds to dispose medications if other options are not available. Mix your drugs with these household products, seal them in an airtight container and throw it into the garbage. Call [facility]: [phone] to be sure your drugs can be disposed of in this way. Some medicines may require a different approach.4.Never flush your medications down the toilet. IF YOU HAVE BEEN PRESCRIBED AN OPIOIDS FOR PAIN If you have been prescribed an opioid (such as hydrocodone, oxycodone or morphine), it is critical to understand the possible side effects and risks of opioid pain medications. Even when taken as directed, opioids can have several side effects including: Tolerance, meaning you might need to take more of a medication for the same pain relief. Nausea, vomiting and/or constipation. Sleepiness, dizziness, dry mouth, confusion, depression or itching. Physical dependence, meaning you have withdrawal symptoms when a medication is stopped ? this can develop within a few days. KNOW YOUR RESPONSIBILITIES It is important to know exactly how much and how often to take the opioid pain medications you are prescribed. Never take opioids in higher amounts or more often than prescribed. Do not combine opioids with alcohol or other drugs that cause drowsiness, such as benzodiazepines, also known as benzos, including diazepam and alprazolam, muscle relaxants or sleep aids. Never sell or share prescription opioids. This is illegal. Store opioids in a secure place and out of reach of others (including children, family, friends and visitors). The last page(s) of this document has been signed and retained as a CHART COPY Signatures Patient Education Materials Neck Spasm, No Trauma Medication Leaflets cyclobenzaprine My discharge plan and instructions have been reviewed and explained to me and I,DIEGO FAN understand my current condition and have read and understand these discharge instructions. I have received a written copy of the plan/instructions. If I have questions, I am aware that I should contact my doctor. 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 An allergen is something that causes a person s immune system to react. When a person comes in contact with an allergen, it causes the body to release chemicals. These include the chemical histamine. Histamine causes swelling and itching. It may affect the entire body. This is called a general allergic reaction. Often symptoms affect only 1 part of the body. This is called a local allergic reaction. You are having an allergic reaction. Almost anything can cause one. Different people are allergic to different things. It is usually something that you ate or swallowed, came into contact with by getting or putting it on your skin or clothes, or something you breathed in the air. This can be very annoying and sometimes scary. Most of us think of allergic reactions when we have a rash or itchy skin. Symptoms can include: Itching of the eyes, nose, and roof of the mouth Runny or stuffy nose Watery eyes Sneezing or coughing A blocked feeling in the ear Red, itchy rash called hives Red and purple spots Rash, redness, welts, blisters Itching, burning, stinging, pain Dry, flaky, cracking, scaly skin Severe symptoms include: Swelling of the face, lips, or other parts of the body Hoarse voice Trouble swallowing, feeling like your throat is closing Trouble breathing, wheezing Nausea, vomiting, diarrhea, stomach cramps Feeling faint or lightheaded, rapid heart rate Sometimes the cause may be obvious. But there are so many things that can cause a reaction that you may not be able to figure out. The most important things to help find your allergen are: Remembering when it started What you were doing at the time or just before that Any activities you were involved in Any new products or contacts Below are some common causes. But remember that almost anything can cause a reaction. You may not even be aware that you came into contact with one of these things: Dust, mold, pollen Plants (common ones are poison laura and poison oak, but there are many others) Animals Foods such as shrimp, shellfish, peanuts, milk products, gluten, and eggs. Also food colorings, flavorings, and additives. Insect bites or stings such as bees, mosquitos, fleas, ticks Medicines such as penicillin, sulfa medicines, amoxicillin, aspirin, and ibuprofen. But any medicine can cause a reaction. Jewelry such as nickel or gold. This can be new, or something you ve worn for a while, including zippers and buttons. Latex such as in gloves, clothes, toys, balloons, or some tapes. Some people allergic to latex may also have problems with foods like bananas, avocados, kiwi, papaya, or chestnuts. Lotions, perfumes, cosmetics, soaps, shampoos, skincare products, nail products Chemicals or dyes in clothing, linen, personnel security assistant, hair dyes, soaps, iodine Many viruses and common colds can cause a rash that is not an allergic reaction. Sometimes it is hard to tell the difference between allergies, sensitivity, or an intolerance to something. This is especially true with food. Many things can cause diarrhea, vomiting, stomach cramps, and skin irritation. Home care The goal of treatment is to help relieve the symptoms and get you feeling better. The rash will usually fade over several days. But it can sometimes last a couple of weeks. Over the next couple of days, there may be times when it is gets a little worse, and then better again. Here are some things to do: If you know what you are allergic to, stay away from it. Future reactions could be worse than this one. Avoid tight clothing and anything that heats up your skin (hot showers or baths, direct sunlight). Heat will make itching worse. An ice pack will relieve local areas of intense itching and redness. To make an ice pack, put ice cubes in a plastic bag that seals at the top. Wrap it in a thin, clean towel. Don t put the ice directly on the skin because it can damage the skin. Oral diphenhydramine is an txlu-leb-kxkpqic antihistamine sold at pharmacy and grocery stores. Unless a prescription antihistamine was given, diphenhydramine may be used to reduce itching if large areas of the skin are involved. It may make you sleepy. So be careful using it in the daytime or when going to school, working, or driving. Note: Don t use diphenhydramine if you have glaucoma or if you are a man with trouble urinating due to an enlarged prostate. There are other antihistamines that won t make you so sleepy. These are good choices for daytime use. Ask your pharmacist for suggestions. Don t use diphenhydramine cream on your skin. It can cause a further reaction in some people. To help prevent an infection, don't scratch the affected area. Scratching may worsen the reaction and damage your skin. It can also lead to an infection. Always check the affected for signs of an infection. Call your healthcare provider and ask what you can use to help decrease the itching. To decrease allergic reactions, try the following: Use heat-steam to clean your home Use high-efficiency particulate (HEPA) vacuums and filters Stay away from food and pet triggers Kill any cockroaches Clean your house often Follow-up care Follow up with your healthcare provider, or as advised. If you had a severe reaction today, or if you have had several mild to medium allergic reactions in the past, ask your provider about allergy testing. This can help you find out what you are allergic to. If your reaction included dizziness, fainting, or trouble breathing or swallowing, ask your provider about carrying auto-injectable epinephrine. Call 911 Call 911 if any of these occur: Trouble breathing or swallowing, wheezing Cool, moist, pale skin Shortness of breath Hoarse voice or trouble speaking Confused Very drowsy or trouble awakening Fainting or loss of consciousness Rapid heart rate Feeling of dizziness or weakness or a sudden drop in blood pressure Feeling of doom Feeling lightheaded Severe nausea or vomiting, or diarrhea Seizure Swelling in the face, eyelids, lips, mouth, throat or tongue Drooling When to seek medical advice Call your healthcare provider right away if any of these occur: Spreading areas of itching, redness or swelling Nausea or stomach cramps or abdominal pain Continuing or recurring symptoms Spreading areas of redness, swelling, or itching Signs of infection at the affected site: oSpreading redness oIncreased pain or swelling oFluid or colored drainage from the site oFever of 100.4 F (38 C) or above lasting for 24 to 48 hours, or as directed by your provider [id number] [employer]. [address] [place] [address]. All rights reserved. This information is not intended as a substitute for professional medical care. Always follow your healthcare professional's instructions. Follow Up Care 05/26/2023 11:38:28 With:Call Physician Referral Address:Unknown When:Within 1 Week(s) Comments:Schedule appointment for follow-up if symptoms not improving and to establish a local primary care doctor.Use Benadryl 50 mg every 6 hours as needed for itching.Cool baths and compresses.May use topical anti-itch creams and lotions like calamine or Caladryl for symptomatic relief.Use steroid (prednisone) as prescribed.Return to the ED if symptoms worsen. [facility] Emergency department Discharge summary 05-26-2023 Note Date & Type Note Facility 05-26-2023 Emergency department Discharge summary Discharge Instructions Thank you for allowing [facility] to assist you with your healthcare needs. The following is important discharge information regarding your hospital visit. Diagnosis from Today's Visit Rash What to Do Next Instructions from Your Care Team No qualifying data available. Post Acute Orders No qualifying data available. You Need to Schedule the Following Appointments Follow Up with Call Physician Referral When In 1 week Why: Schedule appointment for follow-up if symptoms not improving and to establish a local primary care doctor. Use Benadryl 50 mg every 6 hours as needed for itching. Cool baths and compresses. May use topical anti-itch creams and lotions like calamine or Caladryl for symptomatic relief. Use steroid (prednisone) as prescribed. Return to the ED if symptoms worsen. Allergies codeine Medications Please ask your primary doctor or pharmacist before taking any other medication not listed, including over the counter drugs, herbal medications, vitamins and or supplements as they may interact with your home medications. What How Much When Instructions Last Dose New predniSONE (predniSONE 20 mg oral tablet) 2 tab(s) by mouth Once a day Duration: 6 Days Printed Prescription Please take this list to your next doctor s visit. Bring all medications you take, including over the counter medications, herbals and other supplements with you to your doctor s visit. Patients and families are reminded to discard old lists and to update any records with all medication providers or retail pharmacies. Education Materials General Allergic Reactions An allergic reaction is a set of symptoms caused by an allergen. An allergen is something that causes a person s immune system to react. When a person comes in contact with an allergen, it causes the body to release chemicals. These include the chemical histamine. Histamine causes swelling and itching. It may affect the entire body. This is called a general allergic reaction. Often symptoms affect only 1 part of the body. This is called a local allergic reaction. You are having an allergic reaction. Almost anything can cause one. Different people are allergic to different things. It is usually something that you ate or swallowed, came into contact with by getting or putting it on your skin or clothes, or something you breathed in the air. This can be very annoying and sometimes scary. Most of us think of allergic reactions when we have a rash or itchy skin. Symptoms can include: Itching of the eyes, nose, and roof of the mouth Runny or stuffy nose Watery eyes Sneezing or coughing A blocked feeling in the ear Red, itchy rash called hives Red and purple spots Rash, redness, welts, blisters Itching, burning, stinging, pain Dry, flaky, cracking, scaly skin Severe symptoms include: Swelling of the face, lips, or other parts of the body Hoarse voice Trouble swallowing, feeling like your throat is closing Trouble breathing, wheezing Nausea, vomiting, diarrhea, stomach cramps Feeling faint or lightheaded, rapid heart rate Sometimes the cause may be obvious. But there are so many things that can cause a reaction that you may not be able to figure out. The most important things to help find your allergen are: Remembering when it started What you were doing at the time or just before that Any activities you were involved in Any new products or contacts Below are some common causes. But remember that almost anything can cause a reaction. You may not even be aware that you came into contact with one of these things: Dust, mold, pollen Plants (common ones are poison laura and poison oak, but there are many others) Animals Foods such as shrimp, shellfish, peanuts, milk products, gluten, and eggs. Also food colorings, flavorings, and additives. Insect bites or stings such as bees, mosquitos, fleas, ticks Medicines such as penicillin, sulfa medicines, amoxicillin, aspirin, and ibuprofen. But any medicine can cause a reaction. Jewelry such as nickel or gold. This can be new, or something you ve worn for a while, including zippers and buttons. Latex such as in gloves, clothes, toys, balloons, or some tapes. Some people allergic to latex may also have problems with foods like bananas, avocados, kiwi, papaya, or chestnuts. Lotions, perfumes, cosmetics, soaps, shampoos, skincare products, nail products Chemicals or dyes in clothing, linen, personnel security assistant, hair dyes, soaps, iodine Many viruses and common colds can cause a rash that is not an allergic reaction. Sometimes it is hard to tell the difference between allergies, sensitivity, or an intolerance to something. This is especially true with food. Many things can cause diarrhea, vomiting, stomach cramps, and skin irritation. Home care The goal of treatment is to help relieve the symptoms and get you feeling better. The rash will usually fade over several days. But it can sometimes last a couple of weeks. Over the next couple of days, there may be times when it is gets a little worse, and then better again. Here are some things to do: If you know what you are allergic to, stay away from it. Future reactions could be worse than this one. Avoid tight clothing and anything that heats up your skin (hot showers or baths, direct sunlight). Heat will make itching worse. An ice pack will relieve local areas of intense itching and redness. To make an ice pack, put ice cubes in a plastic bag that seals at the top. Wrap it in a thin, clean towel. Don t put the ice directly on the skin because it can damage the skin. Oral diphenhydramine is an zlhc-rft-vorgwvk antihistamine sold at pharmacy and grocery stores. Unless a prescription antihistamine was given, diphenhydramine may be used to reduce itching if large areas of the skin are involved. It may make you sleepy. So be careful using it in the daytime or when going to school, working, or driving. Note: Don t use diphenhydramine if you have glaucoma or if you are a man with trouble urinating due to an enlarged prostate. There are other antihistamines that won t make you so sleepy. These are good choices for daytime use. Ask your pharmacist for suggestions. Don t use diphenhydramine cream on your skin. It can cause a further reaction in some people. To help prevent an infection, don't scratch the affected area. Scratching may worsen the reaction and damage your skin. It can also lead to an infection. Always check the affected for signs of an infection. Call your healthcare provider and ask what you can use to help decrease the itching. To decrease allergic reactions, try the following: Use heat-steam to clean your home Use high-efficiency particulate (HEPA) vacuums and filters Stay away from food and pet triggers Kill any cockroaches Clean your house often Follow-up care Follow up with your healthcare provider, or as advised. If you had a severe reaction today, or if you have had several mild to medium allergic reactions in the past, ask your provider about allergy testing. This can help you find out what you are allergic to. If your reaction included dizziness, fainting, or trouble breathing or swallowing, ask your provider about carrying auto-injectable epinephrine. Call 911 Call 911 if any of these occur: Trouble breathing or swallowing, wheezing Cool, moist, pale skin Shortness of breath Hoarse voice or trouble speaking Confused Very drowsy or trouble awakening Fainting or loss of consciousness Rapid heart rate Feeling of dizziness or weakness or a sudden drop in blood pressure Feeling of doom Feeling lightheaded Severe nausea or vomiting, or diarrhea Seizure Swelling in the face, eyelids, lips, mouth, throat or tongue Drooling When to seek medical advice Call your healthcare provider right away if any of these occur: Spreading areas of itching, redness or swelling Nausea or stomach cramps or abdominal pain Continuing or recurring symptoms Spreading areas of redness, swelling, or itching Signs of infection at the affected site: oSpreading redness oIncreased pain or swelling oFluid or colored drainage from the site oFever of 100.4 F (38 C) or above lasting for 24 to 48 hours, or as directed by your provider [id number] [employer]. [address] [place] [address]. All rights reserved. This information is not intended as a substitute for professional medical care. Always follow your healthcare professional's instructions. Additional Information VACCINATE! IT SAVES LIVES! Members of the community who have not yet received the COVID-19 vaccine and would like to receive it can visit one of [facility] vaccine clinics. There are many vaccine clinic locations within the [facility]. For locations and available times, please visit [email or web address] It is important to note that some COVID mobile vaccine clinics are held outdoors and may be canceled in rainy or stormy conditions. To learn more about pediatric vaccinations (ages 5-11), we invite you to visit the [facility] webpage. [email or web address] [email or web address] [email or web address].[email or web address] To learn more about the COVID-19 vaccine, we invite you to visit the CDC website for a list of frequently asked questions. https://www.cdc.gov/coronavirus/2 019-ncov/vaccines/faq.html [facility] Patient Portal Access Instructions: Stay connected with your healthcare team and access your personal medical information anytime with the [facility] Patient Portal. If you would like a full copy of your medical records please contact the [facility] Medical Records Department Friday through Friday between 8a.m. and 4:30p.m. Please follow the directions below to access the portal: 1.Access the email account you provided upon registration to the [facility].2.Look for an invitation email from [facility].3.Open the email and access the invitation link: Accept Invitation to [facility] [employer]4.Fill in the required silva to create your account. Sign into [email or web address] with your username and password that you created in the above steps to stay up to date. You can then view a summary of results, a summary of your visits, and the ability to download your summaries to your computer or send the information securely to a physician. Remember that your healthcare information is confidential, so carefully consider who you will allow to register on the [facility] Patient Portal for access to your information. You can also access the [facility] Patient Portal on the [employer]. Simply click on Health Records under Health Data and then click on the [email or web address] logo. HOW TO SAFELY DISPOSE OF PRESCRIPTION MEDICATIONS Please use one of the following methods to safely dispose of your unused medications. 1.Use a drug disposal kit: the drug disposal pouch allows you to safely discard your old and unused drugs. Ask your nurse to give you one when you are discharged.2.Visit a local take-back location: Many local pharmacies and police departments have programs that collect old and unwanted prescription drugs. Call your local pharmacy or go to http://Wavecraft.WeWork/7J4Ii3w to find one close to you.3.Make use of household items: Use cat litter or old coffee grounds to dispose medications if other options are not available. Mix your drugs with these household products, seal them in an airtight container and throw it into the garbage. Call [facility]: [phone] to be sure your drugs can be disposed of in this way. Some medicines may require a different approach.4.Never flush your medications down the toilet. IF YOU HAVE BEEN PRESCRIBED AN OPIOIDS FOR PAIN If you have been prescribed an opioid (such as hydrocodone, oxycodone or morphine), it is critical to understand the possible side effects and risks of opioid pain medications. Even when taken as directed, opioids can have several side effects including: Tolerance, meaning you might need to take more of a medication for the same pain relief. Nausea, vomiting and/or constipation. Sleepiness, dizziness, dry mouth, confusion, depression or itching. Physical dependence, meaning you have withdrawal symptoms when a medication is stopped ? this can develop within a few days. KNOW YOUR RESPONSIBILITIES It is important to know exactly how much and how often to take the opioid pain medications you are prescribed. Never take opioids in higher amounts or more often than prescribed. Do not combine opioids with alcohol or other drugs that cause drowsiness, such as benzodiazepines, also known as benzos, including diazepam and alprazolam, muscle relaxants or sleep aids. Never sell or share prescription opioids. This is illegal. Store opioids in a secure place and out of reach of others (including children, family, friends and visitors). The last page(s) of this document has been signed and retained as a CHART COPY Signatures Patient Education Materials Allergic Reaction, Other (General) Medication Leaflets My discharge plan and instructions have been reviewed and explained to me and I,DIEGO FAN understand my current condition and have read and understand these discharge instructions. I have received a written copy of the plan/instructions. If I have questions, I am aware that I should contact my doctor. 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: Date/Time: Relationship to Patient: ____ Witness Name/Signature: Date/Time: [facility] Evaluation + Plan note Note Date & Type Note Facility Evaluation + Plan note No data available for this section [facility] Summary Purpose Family History No Family History Records Found Advance Directives No Advanced Directives Records Found Additional Source Comments Patient Care team informatio n (unrecognized section and content) Care Team Personnel Name: PHYSICIAN, NONE Position: Physician Member Role: Primary Care Physician Name: KAMRAN BOSTON MD Position: ED Physician Member Role: ED Physician Address: Address: [facility] [address] [place] [address]- Name: Dolores Mayes Violet dress finisher Position: HIM: Coders Member Role: HIM: Coders Name: Leah Espino RN Position: ED RN Member Role: ED RN Care Team Personnel Name: PHYSICIAN, NONE Position: Physician Member Role: Primary Care Physician Name: CRISTY ALEXANDER DO Position: ED Physician Member Role: ED Physician Address: Address: [address] INFORMATION SOURCE (unrecogn ized section and content) FOR RECORDS PERTAINING TO PATIENTS WHO ARE OR HAVE BEEN ENROLLED IN A CHEMICAL DEPENDENCY/SUBSTANCEABUSE PROGRAM, SOME INFORMATION MAY BE OMITTED. This clinical summary was aggregated from multiple sources. Caution should be exercised in using it in the provision of clinical care. This summary normalizes information from multiple sources, and as a consequence, information in this document may materially change the coding, format and clinical context of patient data. In addition, data may be omitted in some cases. CLINICAL DECISIONS SHOULD BE BASED ON THE PRIMARY CLINICAL RECORDS. [facility] [employer] [facility]. provides no warranty or guarantee of the accuracy or completeness of information in this document.
[2023-11-21 18:22] LABS: HIV - WCH Non-Reactive (Nonreactive); Hepatitis B Surface Antigen Non-Reactive (Nonreactive); Hepatitis C Antibody Non-Reactive (Nonreactive); Rubella IgG Equiv (Nonreactive); Syphilis Antibodies Non-reactive
== END | disposition home or self-care (01) ==
LOC: LAB 14:57
PROVIDERS: Referring Provider Advanced Practice Midwife; Visit Provider Advanced Practice Midwife
DX: Z34.90 Encounter for supervision of normal pregnancy, unspecified, unspecified trimester (principal)
CPT/HCPCS: 36415; 80053; 83036; 85025; 86703; 86762; 86780; 86803; 86850; 86870; 86900; 86901; 87340

== ENCOUNTER → 2023-12-17 | Outpatient (CLI) | payer MEDICAID, SELFPAY ==
[2023-12-17 16:42] LABS: Absolute Neutrophil Count 7.5 X10^3/uL (2.0-7.7); Basophil# 0.03 X10^3/uL; Basophil% 0.3 % (0-1); Eosinophils% 0.9 % (0-5); Hematocrit 37.1 % (37-47); Lymphocyte % 25.1 % (19-41); Mean Corp Hgb Conc 32.3 g/dL (32-36); Mean Corpuscular Hgb 26.2 pg (27.0-32.0); Mean Platelet Vol. 10.5 fl (6.2-12.0); Monocyte# 0.73 X10^3/uL; Monocyte% 6.5 % (0-10); NRBC Flagged by Analyzer 0 % (0-5); Neutrophil # 7.46 X10^3/uL (2.7-7.7); Neutrophil % 66.9 % (47-70); Platelet Count 299 K/mm3 (150-450); RBC Distribution Width CV 14.8 % (11.6-14.6); RBC Distribution Width SD 43.3 fl (35.1-43.9); Red Blood Count 4.58 M/mm3 (4.2-5.4); White Blood Count 11.2 K/mm3 (4.4-11.0)
[2023-12-17 17:05] LABS: ALB/GLOB Ratio 0.6 RATIO (0.9-2.4); AST(SGOT) 14 U/L (15-37); Alanine Aminotransfer ALT/SGPT 19 U/L (13-56); Albumin, Serum 2.7 g/dL (3.2-5.0); Alkaline Phosphatase 115 U/L (45-117); Anion Gap 6 (5-15); BUN 8 mg/dL (7-18); BUN/Creat Ratio 12.8 RATIO (10-20); Calcium,Total 9.3 mg/dL (8.5-10.1); Chloride 107 mmol/L (98-107); Creatinine, Serum 0.63 mg/dL (0.55-1.02); EST Glomerular Filtration Rate 127 mL/min (>60); Est Glom Filt Rate - Afr Amer 153 mL/min (>60); Globulin 4.8 g/dL (2.2-4.2); Glucose 75 mg/dL (74-106); Potassium 4.1 mmol/L (3.5-5.1); Protein, Total 7.5 g/dL (6.4-8.2); Sodium Level 138 mmol/L (136-145)
[2023-12-17 18:31] LABS: Protein, Urine (Random) 58.4 mg/dL (<11.9); Protein:Creat Ratio 200 mg/g CRE (0-200)
== END | disposition home or self-care (01) ==
PROVIDERS: Referring Provider Obstetrics & Gynecology; Visit Provider Obstetrics & Gynecology
DX: Z87.59 Personal history of other complications of pregnancy, childbirth and the puerperium (principal); N89.8 Other specified noninflammatory disorders of vagina
CPT/HCPCS: 36415; 80053; 82570; 84156; 85025; 87070; 87205

== ENCOUNTER → 2024-01-14 | Outpatient (CLI) | payer MEDICAID, SELFPAY ==
--- NOTE | 2024-01-14 11:37 | US_ITS ---
STUDY: SECOND AND THIRD TRIMESTER OBSTETRICAL ULTRASOUND - LIMITED REASON FOR EXAM: Female, 23 years old Cervical length [id number] until 24 weeks LMP: August 18, 2023. PRIOR ULTRASOUND: Comparison is made with prior study September 18, 2023. TECHNIQUE: Transvaginal TECHNICAL QUALITY: Adequate. FINDINGS: There is a single intrauterine fetus. The fetus is in a cephalic presentation. There is demonstrated cardiac activity with a heart rate of 153 bpm. There is a normal amniotic fluid volume. The largest amniotic fluid pocket measures 5.6 cm. The amniotic fluid index (BEHZAD) is within normal limits. The placenta is posterior in location and is not low lying. There are Grade 0 placental changes. The cervix measures 3.4 cm in length. BIOMETRY: Age by LMP: 21 weeks, 2 days. ZEINAB by LMP: May 24, 2024. US/Transvaginal w/Preg US IMPRESSION: Cervical length measures 3.4 cm. Electronically Signed: Alberto Turk MD at 12:31 EDT ,
[2024-01-14 17:15] LABS: Protein, Urine (Random) 50.1 mg/dL (<11.9); Protein:Creat Ratio 327 mg/g CRE (0-200)
[2024-01-14 17:23] LABS: Amphetamine Urine VISTA NEGATIVE (<1000 ng/mL); Barbiturate Urine VISTA NEGATIVE (< 200 ng/mL); Benzodiazepine Urine VISTA NEGATIVE (< 200 ng/mL); Cocaine Urine VISTA NEGATIVE (< 300 ng/mL); Ecstacy Urine VISTA NEGATIVE (< 500 ng/mL); Methadone Urine VISTA NEGATIVE (< 300 ng/mL); PCP Urine VISTA NEGATIVE (< 25 ng/mL); THC Urine VISTA NEGATIVE (< 50 ng/mL); Vista UDS pH Range 5
== END | disposition home or self-care (01) ==
PROVIDERS: Referring Provider Advanced Practice Midwife; Visit Provider Advanced Practice Midwife
DX: O12.10 Gestational proteinuria, unspecified trimester (principal); F12.21 Cannabis dependence, in remission; O99.320 Drug use complicating pregnancy, unspecified trimester; Z3A.00 Weeks of gestation of pregnancy not specified
CPT/HCPCS: 76817; 80307; 82570; 84156

== ENCOUNTER → 2024-01-28 | Outpatient (CLI) | payer MEDICAID, SELFPAY ==
--- NOTE | 2024-01-28 13:30 | US_ITS ---
STUDY: SECOND AND THIRD TRIMESTER OBSTETRICAL ULTRASOUND - LIMITED REASON FOR EXAM: Female, 23 years old cervical length q 2 weeks until 24 weeks LMP: August 18, 2023. PRIOR ULTRASOUND: Comparison is made with prior study dated January 14, 2024. TECHNIQUE: Transabdominal and Transvaginal TECHNICAL QUALITY: Adequate. FINDINGS: There is a single intrauterine fetus. The fetus is in a cephalic presentation. There is demonstrated cardiac activity with a heart rate of 138 bpm. There is a normal amniotic fluid volume. The largest amniotic fluid pocket measures 4 cm. The amniotic fluid index (BEHZAD) is within normal limits. The placenta is posterior in location and is not low lying. There are Grade 0 placental changes. The cervix measures 3.6 cm in length. BIOMETRY: Age by LMP: 23 weeks, 2 days. ZEINAB by LMP: May 24, 2024. age by prior US: 23 weeks, 2 days. ZEINAB by prior US: May 24, 2024. US/Transvaginal w/Preg US IMPRESSION: Cervical length measures 3.6 cm. Electronically Signed: Alberto Turk MD at 8:36 EDT ,
== END | disposition home or self-care (01) ==
LOC: US 13:29
PROVIDERS: Referring Provider Advanced Practice Midwife; Visit Provider Advanced Practice Midwife
DX: O09.299 Supervision of pregnancy with other poor reproductive or obstetric history, unspecified trimester (principal); Z3A.00 Weeks of gestation of pregnancy not specified
CPT/HCPCS: 76817

== ENCOUNTER → 2024-02-06 | Outpatient (CLI) | payer MEDICAID, SELFPAY ==
[2024-02-06 13:03] LABS: Absolute Lymphocyte Count 2.52 X10^3/uL (0.83-4.51); Absolute Neutrophil Count 8.6 X10^3/uL (2.0-7.7); Basophil# 0.03 X10^3/uL; Basophil% 0.3 % (0-1); Eosinophils% 0.8 % (0-5); Hematocrit 34.2 % (37-47); Hemoglobin 11.1 g/dL (12.0-15.0); Lymphocyte # 2.52 X10^3/ul (0.83-4.51); Lymphocyte % 21.2 % (19-41); Mean Corp Hgb Conc 32.5 g/dL (32-36); Mean Corpuscular Hgb 26.4 pg (27.0-32.0); Mean Corpuscular Volume 81.4 fL (81-99); Mean Platelet Vol. 11.3 fl (6.2-12.0); Monocyte# 0.59 X10^3/uL; NRBC Flagged by Analyzer 0 % (0-5); Neutrophil # 8.63 X10^3/uL (2.7-7.7); Neutrophil % 72.4 % (47-70); Platelet Count 283 K/mm3 (150-450); RBC Distribution Width CV 14.2 % (11.6-14.6); RBC Distribution Width SD 40.8 fl (35.1-43.9); White Blood Count 11.9 K/mm3 (4.4-11.0)
[2024-02-06 13:30] LABS: Glucose Challenge Gest 1H 50g 101 mg/dL (70-140)
[2024-02-06 14:09] LABS: HIV - WCH Non-Reactive (Nonreactive); Syphilis Antibodies Non-reactive
== END | disposition home or self-care (01) ==
LOC: LAB 12:13
PROVIDERS: Referring Provider Advanced Practice Midwife; Visit Provider Advanced Practice Midwife
DX: O09.92 Supervision of high risk pregnancy, unspecified, second trimester (principal); Z3A.00 Weeks of gestation of pregnancy not specified
CPT/HCPCS: 36415; 82950; 85025; 86703; 86780; 86850; 86900; 86901

== ENCOUNTER → 2024-02-11 | Outpatient (CLI) | payer MEDICAID, SELFPAY ==
--- NOTE | 2024-02-11 13:42 | US_ITS ---
INDICATION: cervical length [id number] until 24 weeks EXAMINATION: Ultrasound US OB Transvaginal TECHNIQUE: Transabdominal and transvaginal (for optimal evaluation of the adnexa) pelvic ultrasound was performed. Grayscale, spectral waveform, and color flow Doppler evaluation of the adnexa. COMPARISON: Prior study dated: 01/28/2024 LMP: [Unknown Beta-hCG: Unknown FINDINGS: CERVIX: Cervical length of 3.8 cm. Small amount of fluid tracks in the cervical canal.. FREE FLUID: None. Cephalic position. heart rate measuring 147 bpm. US/Transvaginal w/Preg US IMPRESSION: Cervical length of 3.8 cm with small volume of fluid in the cervical canal. Electronically Signed: Farhad Pepper MD at 14:58 EDT ,
== END | disposition home or self-care (01) ==
LOC: US 13:40
PROVIDERS: Referring Provider Advanced Practice Midwife; Visit Provider Advanced Practice Midwife
DX: O09.299 Supervision of pregnancy with other poor reproductive or obstetric history, unspecified trimester (principal); Z3A.00 Weeks of gestation of pregnancy not specified
CPT/HCPCS: 76817

== ENCOUNTER → 2024-03-10 | Outpatient (CLI) | payer MEDICAID, SELFPAY ==
[2024-03-10 16:41] LABS: Protein:Creat Ratio 334 mg/g CRE (0-200)
== END | disposition home or self-care (01) ==
PROVIDERS: Referring Provider Obstetrics & Gynecology; Visit Provider Obstetrics & Gynecology
DX: O12.12 Gestational proteinuria, second trimester (principal); Z87.59 Personal history of other complications of pregnancy, childbirth and the puerperium; Z3A.00 Weeks of gestation of pregnancy not specified
CPT/HCPCS: 36415; 82570; 84156; 86850; 86900; 86901

== ENCOUNTER 2024-03-31 16:24 | Outpatient (CLI) | payer MEDICAID, SELFPAY ==
[2024-03-31 17:40] LABS: Protein, Urine (Random) 41.4 mg/dL (<11.9); Protein:Creat Ratio 323 mg/g CRE (0-200)
== END 2024-03-31 23:59 | disposition home or self-care (01) ==
LOC: LABSPEC 16:25
PROVIDERS: Referring Provider Obstetrics & Gynecology; Visit Provider Obstetrics & Gynecology
DX: O09.90 Supervision of high risk pregnancy, unspecified, unspecified trimester (principal); Z3A.29 29 weeks gestation of pregnancy
CPT/HCPCS: 82570; 84156

== ENCOUNTER → 2024-04-21 | Outpatient (CLI) | payer MEDICAID, SELFPAY ==
[2024-04-21 17:51] LABS: Protein, Urine (Random) 53.4 mg/dL (<11.9); Protein:Creat Ratio 363 mg/g CRE (0-200)
== END | disposition home or self-care (01) ==
PROVIDERS: Referring Provider Nurse Practitioner Women's Health; Visit Provider Nurse Practitioner Women's Health
DX: O12.12 Gestational proteinuria, second trimester (principal); Z87.59 Personal history of other complications of pregnancy, childbirth and the puerperium; Z3A.00 Weeks of gestation of pregnancy not specified
CPT/HCPCS: 82570; 84156

== ENCOUNTER → 2024-04-23 | Outpatient (CLI) | payer MEDICAID, SELFPAY ==
[2024-04-23 14:15] LABS: Absolute Lymphocyte Count 2.52 X10^3/uL (0.83-4.51); Absolute Neutrophil Count 7.8 X10^3/uL (2.0-7.7); Basophil# 0.02 X10^3/uL; Basophil% 0.2 % (0-1); Eosinophil# 0.05 X10^3/uL; Eosinophils% 0.4 % (0-5); Hematocrit 33.9 % (37-47); Hemoglobin 10.6 g/dL (12.0-15.0); Lymphocyte # 2.52 X10^3/ul (0.83-4.51); Lymphocyte % 22.3 % (19-41); Mean Corp Hgb Conc 31.3 g/dL (32-36); Mean Corpuscular Hgb 25.1 pg (27.0-32.0); Mean Corpuscular Volume 80.3 fL (81-99); Mean Platelet Vol. 11.3 fl (6.2-12.0); Monocyte# 0.84 X10^3/uL; Monocyte% 7.4 % (0-10); NRBC Flagged by Analyzer 0 % (0-5); Neutrophil # 7.82 X10^3/uL (2.7-7.7); Neutrophil % 69.2 % (47-70); Platelet Count 263 K/mm3 (150-450); RBC Distribution Width CV 14.5 % (11.6-14.6); Red Blood Count 4.22 M/mm3 (4.2-5.4); White Blood Count 11.3 K/mm3 (4.4-11.0)
[2024-04-23 14:45] LABS: ALB/GLOB Ratio 0.5 RATIO (0.9-2.4); AST(SGOT) 27 U/L (15-37); Alanine Aminotransfer ALT/SGPT 36 U/L (13-56); Albumin, Serum 2.2 g/dL (3.2-5.0); Alkaline Phosphatase 204 U/L (45-117); Anion Gap 5 (5-15); BUN 8 mg/dL (7-18); BUN/Creat Ratio 13.9 RATIO (10-20); Calcium,Total 8.9 mg/dL (8.5-10.1); Chloride 105 mmol/L (98-107); Creatinine, Serum 0.58 mg/dL (0.55-1.02); EST Glomerular Filtration Rate 139 mL/min (>60); Est Glom Filt Rate - Afr Amer 169 mL/min (>60); Globulin 4.8 g/dL (2.2-4.2); Glucose 92 mg/dL (74-106); Sodium Level 136 mmol/L (136-145)
== END | disposition home or self-care (01) ==
LOC: LAB 13:41
PROVIDERS: Referring Provider Obstetrics & Gynecology; Visit Provider Obstetrics & Gynecology
DX: O12.12 Gestational proteinuria, second trimester (principal); O09.92 Supervision of high risk pregnancy, unspecified, second trimester; Z3A.00 Weeks of gestation of pregnancy not specified
CPT/HCPCS: 36415; 80053; 85025

== ENCOUNTER 2024-04-28 13:43 | Outpatient (CLI) | payer MEDICAID, SELFPAY ==
[2024-04-28] VITALS (11 sets, daily range): BP systolic 122–144; BP diastolic 62–84; PULSE 92–111; BMI 49.4
[2024-04-28 14:47] LABS: Hematocrit 32.4 % (37-47); Hemoglobin 10.5 g/dL (12.0-15.0); Mean Corp Hgb Conc 32.4 g/dL (32-36); Mean Corpuscular Hgb 24.8 pg (27.0-32.0); Mean Corpuscular Volume 76.6 fL (81-99); Mean Platelet Vol. 11.2 fl (6.2-12.0); Platelet Count 241 K/mm3 (150-450); RBC Distribution Width CV 14.6 % (11.6-14.6); RBC Distribution Width SD 39.9 fl (35.1-43.9); Red Blood Count 4.23 M/mm3 (4.2-5.4); White Blood Count 11.6 K/mm3 (4.4-11.0)
[2024-04-28] MEDS: Betamethasone/Betamethasone 30 MG/5 ML Vial 12 MG IM (15:07)
[2024-04-28 15:18] LABS: AST(SGOT) 35 U/L (15-37); Alanine Aminotransfer ALT/SGPT 45 U/L (13-56); Creatinine, Serum 0.54 mg/dL (0.55-1.02); EST Glomerular Filtration Rate 149 mL/min (>60); Est Glom Filt Rate - Afr Amer 180 mL/min (>60); Estimated Creatinine Clearance 251.26 ml/min
--- NOTE | 2024-04-28 17:26 | OB.TRI.PN ---
Progress Notes Date of Service: 04/28/24 Progress Note: Patient presents for triage evaluation secondary to elevate dbps FHT: 130 Moderate variability reactive no decelerations category I tracing Valinda: no regular Contractions Assessment and plan: preeclampsia Reactive NST, reassuring maternal and status patient discharged to home to follow-up as bekah. See problem list details for additional plan information. Laboratory Studies: Laboratory Tests 04/28/24 Range/Units 14:15 WBC 11.6 H (4.4-11.0) K/mm3 RBC 4.23 (4.2-5.4) M/mm3 Hgb 10.5 L (12.0-15.0) g/dL Hct 32.4 L (37-47) % MCV 76.6 L (81-99) fL MCH 24.8 L (27.0-32.0) pg MCHC 32.4 (32-36) g/dL RDW Std Deviation 39.9 (35.1-43.9) fl RDW Coeff of Pepe 14.6 (11.6-14.6) % Plt Count 241 (150-450) K/mm3 MPV 11.2 (6.2-12.0) fl Creatinine 0.54 L (0.55-1.02) mg/dL Estim Creat Clear Calc 251.26 ml/min Est GFR (MDRD) Af Amer 180 (>60) mL/min Est GFR (MDRD) Non-Af 149 (>60) mL/min Uric Acid 3.0 (2.6-6.0) mg/dL AST 35 (15-37) U/L ALT 45 (13-56) U/L Charges/Coding Procedures Urinary/Genital [id number]-59xxx: [id number] non-stress test Interp
== END 2024-04-28 15:55 | disposition home or self-care (01) ==
LOC: WPOUT 13:44 → WP 13:44
PROVIDERS: Referring Provider Obstetrics & Gynecology; Visit Provider Obstetrics & Gynecology
DX: O14.90 Unspecified pre-eclampsia, unspecified trimester (principal); Z3A.00 Weeks of gestation of pregnancy not specified
CPT/HCPCS: 36415; 59025; 59050; 82565; 82570; 84156; 84450; 84460; 84550; 85027; 87077; 87081; 87186; 87653; 96372; 99221; G0378; J0702

== ENCOUNTER → 2024-04-28 | Outpatient (CLI) | payer MEDICAID, SELFPAY ==
[2024-04-28 14:50] LABS: Protein, Urine (Random) 39.6 mg/dL (<11.9); Protein:Creat Ratio 374 mg/g CRE (0-200)
== END | disposition home or self-care (01) ==
LOC: LAB 13:45
PROVIDERS: Referring Provider Nurse Practitioner Women's Health; Visit Provider Nurse Practitioner Women's Health
DX: O12.12 Gestational proteinuria, second trimester (principal); Z3A.00 Weeks of gestation of pregnancy not specified
CPT/HCPCS: 82570; 84156

== ENCOUNTER 2024-04-29 14:57 | Outpatient (CLI) | payer MEDICAID, SELFPAY ==
[2024-04-29 15:13] VITALS: BMI 49.4
[2024-04-29] MEDS: Betamethasone/Betamethasone 30 MG/5 ML Vial 12 MG IM (15:28)
[2024-04-29 15:38] VITALS: BP 133/75; PULSE 87
--- NOTE | 2024-05-18 09:06 | OB.TRI.PN ---
Progress Notes Date of Service: 04/29/24 Progress Note: celestone given for prematurity, gestational hypertension
== END 2024-04-29 15:40 | disposition home or self-care (01) ==
LOC: WPOUT 14:59 → WP 14:59
PROVIDERS: Referring Provider Obstetrics & Gynecology; Visit Provider Obstetrics & Gynecology
DX: O14.90 Unspecified pre-eclampsia, unspecified trimester (principal); Z3A.00 Weeks of gestation of pregnancy not specified
CPT/HCPCS: 96372; 99221; G0378; J0702

== ENCOUNTER → 2024-04-30 | Outpatient (CLI) | payer MEDICAID, SELFPAY | END | disposition home or self-care (01) | LOC: LABSPEC 14:02 | PROVIDERS: Referring Provider Registered Nurse; Visit Provider Registered Nurse | DX: O14.95 Unspecified pre-eclampsia, complicating the puerperium (principal); Z3A.00 Weeks of gestation of pregnancy not specified ==

== ENCOUNTER 2024-05-03 11:08 | Inpatient (IN) | payer MEDICAID, SELFPAY ==
[2024-05-03] VITALS (31 sets, daily range): BP systolic 105–139; BP diastolic 60–100; PULSE 77–118; RESP 14–16; TEMP 36.2–36.7; O2SAT 94–100; BMI 50.5
[2024-05-03 11:43] LABS: Absolute Lymphocyte Count 2.56 X10^3/uL (0.83-4.51); Basophil# 0.02 X10^3/uL; Basophil% 0.1 % (0-1); Eosinophil# 0.04 X10^3/uL; Eosinophils% 0.3 % (0-5); Hematocrit 34.2 % (37-47); Hemoglobin 10.9 g/dL (12.0-15.0); Lymphocyte # 2.56 X10^3/ul (0.83-4.51); Lymphocyte % 18.9 % (19-41); Mean Corp Hgb Conc 31.9 g/dL (32-36); Mean Corpuscular Hgb 24.8 pg (27.0-32.0); Mean Corpuscular Volume 77.7 fL (81-99); Mean Platelet Vol. 11.5 fl (6.2-12.0); Monocyte% 6.6 % (0-10); NRBC Flagged by Analyzer 0 % (0-5); Neutrophil # 9.95 X10^3/uL (2.7-7.7); Neutrophil % 73.4 % (47-70); Platelet Count 256 K/mm3 (150-450); RBC Distribution Width CV 14.6 % (11.6-14.6); RBC Distribution Width SD 40.7 fl (35.1-43.9); White Blood Count 13.6 K/mm3 (4.4-11.0)
[2024-05-03 12:25] LABS: Syphilis Antibodies Non-reactive
[2024-05-03 12:36] LABS: AST(SGOT) 30 U/L (15-37); Alanine Aminotransfer ALT/SGPT 64 U/L (13-56); Creatinine, Serum 0.52 mg/dL (0.55-1.02); EST Glomerular Filtration Rate 157 mL/min (>60); Est Glom Filt Rate - Afr Amer 189 mL/min (>60); Estimated Creatinine Clearance 255.71 ml/min; Uric Acid 3.4 mg/dL (2.6-6.0)
[2024-05-03] MEDS: miSOPROStol 25 MCG TABLET VAGINAL ×2 (13:02→17:19)
[2024-05-03 13:31] LABS: Protein, Urine (Random) 80.8 mg/dL (<11.9); Protein:Creat Ratio 279 mg/g CRE (0-200)
--- NOTE | 2024-05-03 16:35 | HP.PCM.OB_ITS ---
HPI - General General Date of Admission: 05/03/24 HPI Narrative DIEGO FAN, is a 24 F who presents at 37 weeks for IOL for mild pre- eclampsia. today denies headaches, visual changes or RUQ pain. active fetus. matamoros score 1 in office on friday Maternal Data Information ZEINAB Calculator Estimated Delivery Date Method Current WG Current Estimate 05/24/24 LMP (Certain) 37w 0d PFSH PFSH Medical History Tongue tied Hx of chlamydia infection Home Medications ?Medication ?Instructions ?Recorded ?Last Taken ?Type vitamins no.163-iron 1 tab PO DAILY 10/17/23 Unknown History bis-gly 20 mg-folate no.10 1 mg tablet (PNV Tabs 20-1) Allergy/AdvReac Type Severity Reaction Status Date / Time codeine Allergy Severe Anaphylaxis Verified 05/03/24 12:07 Family History Mother History of recurrent miscarriages 11 miscarriages- Rh negative Surgical History H/O cleft lip repair Social History adopted: No household members: family number of children: 1 current occupational status: employed current occupation: [employer] current occupational exposures/hazards: No pets and animals: Yes (not managing the litterbox) pets and animals: cat(s) history of recent travel: No sexually active: Yes Smoking Status: Never smoker alcohol intake: never substance use type: marijuana well-balanced diet: rarely or never caffeine: No eating out: 1-3 times/week during the past year weight has: remained stable naomi/yazidism: None seatbelt use: always do you feel safe at home: Yes additional social history: FOB/BF- [facility] [employer] History 2 Elective abortions Hx Para 1 Spontaneous abortions Hx # Term Pregnancies Ectopic pregnancies Hx # Pregnancies Multiple births # of living children 1 Past Pregnancies Del. Date Name GA/Weeks Outcome Route Bth Weight Gen Labor Lgth Anesthesia Del Locatn Provider FOB 03/18/22 Michel 37 live - full term 6#4oz Male 20 h rs epidural JARVIS Sahu Delivery Date: 03/18/22 Last Updated by: Korin Johnson iol gestational HTN, incompetent cervix 29wks, bedrest Visit Details Expected Delivery Route/Plan Labor Preferences- CB/BF classes: [] labor support person: [] labor intervention preferences: [] pain management options preferred: [] cut cord/dad catch: [] : [] PP control planned: [] discussed possible routes of delivery and associated risks: [] special requests: [] Plans Covid status: [] Flu vaccine: [] Tdap vaccine: [] Rhogam: [] LARC form signed: [] Problem list reviewed and updated with the most current plan of care details and appropriate orders placed. Relevant counseling for the gestational age provided. Continue routine care and follow up unless otherwise noted in visit notes/problem list details OB Flowsheet Initial Weight: Not Recorded Date -?-?-?-?-?-?-?-?-?-?-?-?- EGA Weight BP Urine Prot -?-?-?-?-?-?-?-?-?-?-?-?- Glucose FHR FuHt Pres Dilation -?-?-?-?-?-?-?-?-?-?-?-?- Effaced St Visit Note 10/23/23 -?-?-?-?-?-?-?-?-?-?-?-?- 9w 3d 272 lb 4 oz 143/84 117/83 -?-?-?-?-?-?-?-?-?-?-?-?- 180 -?-?-?-?-?-?-?-?-?-?-?-?- KW- CRL cons wit h dates. MFM consult for Hx of incompetent cervix. CF carrier- discussed FOB getting testing. will consider NIPT 11/21/23 -?-?-?-?-?-?-?-?-?-?-?-?- 13w 4d 273 lb 6 oz 124/82 Nega tive -?-?-?-?-?-?-?-?-?-?-?-?- Negative 150 -?-?-?-?-?-?-?-?-?-?-?-?- LC- no vb/crampi ng. cervical lengths starting at 16 weeks. 12/17/23 -?-?-?-?-?-?-?-?-?-?-?-?- 17w 2d 281 lb 2 oz 128/82 1+ -?-?-?-?-?-?-?-?-?-?-?-?- Negative 148 -?-?-?-?-?-?-?-?-?-?-?-?- MH-No VB or Cram ping. Note proteinuria, dark urine. States hasn't drank anything all day. Will get pre E labs due to hx. No headache. Also thinks BV and comp vag culture collected. 01/14/24 -?-?-?-?-?-?-?-?-?-?-?-?- 21w 2d 296 lb 126/75 -?-?-?-?-?-?-?-?-?-?-?-?- 150 22 -?-?-?-?-?-?-?-?-?-?-?-?- kw- no vb/lof/ct x. changed PNV and Vag discharge stopped. will do 28 week labs at next visit. healthy eating reviewed. moved in with FOB and is now a hour away considering moving to closer practice. 02/06/24 -?-?-?-?-?-?-?-?-?-?-?-?- 24w 4d 301 lb 6 oz 130/85 Nega tive -?-?-?-?-?-?-?-?-?-?-?-?- Negative 145 -?-?-?-?-?-?-?-?-?-?-?-?- JV- pt needs to rpt blood work next week for type and screen. needs monthly growth scans for obesity and proteinuria. urine was dumped today but is asymptomatic and not hypertensive. dip was negative for protein. 03/10/24 -?-?-?-?-?-?-?-?-?-?-?-?- 29w 2d 309 lb 2 oz 133/84 Nega tive -?-?-?-?-?-?-?-?-?-?-?-?- Negative 135 31 -?-?-?-?-?-?-?-?-?-?-?--?- JV-to do labs to day and then rhogam/tdap. needs baseline pr:cr 03/31/24 -?-?-?-?-?-?-?-?-?-?-?-?- 32w 2d 313 lb 2 oz 124/86 Trac e -?-?-?-?-?-?-?--?-?-?-?-?- Negative 139 32 -?-?-?-?-?-?-?-?-?-?-?-?- JV- has growth u s follow 04/14/24. plan is to start nsts at 34 weeks, weekly. JV- has growth us follow 03/21 04/12. plan is to start nsts at 34 weeks, weekly. continue monitoring protein in urine. 04/15/24 -?-?-?-?-?-?-?-?-?-?-?-?- 34w 3d 322 lb 8 oz 113/65 Nega tive -?-?-?-?-?-?-?-?-?-?-?-?- Negative 125 -?-?-?-?-?-?-?-?-?-?-?-?- JV- bpp and grow th yesterday 8/8 and 34th%. pressure normal today. continue weekly testing. will have an NST with us next week. 04/21/24 -?-?-?-?-?-?-?-?-?-?-?-?- 35w 2d 321 lb 112/74 1+ -?-?-?-?-?-?-?-?-?-?-?-?- Negative 125 -?-?-?-?-?-?-?-?-?-?-?-?- KW- NST only. re active. PC ratio sent for +1 protein. no DAVEY dizziness, blurred vision 04/28/24 -?-?-?-?-?-?-?-?-?-?-?-?- 36w 2d 325 lb 6 oz 138/92 1+ -?-?-?-?-?-?-?-?-?-?-?-?- Negative 130 -?-?-?-?-?-?-?-?-?-?-?-?- MH-elevated BP a nd proteinuria. NST deferred and to for prolonged monitoring, labs 04/30/24 -?-?-?-?-?-?-?-?-?-?-?-?- 36w 4d 325 lb 2 oz 132/85 2+ -?-?-?-?-?-?-?-?-?-?-?-?- Negative 125 0 -?-?-?-?-?-?-?-?-?-?-?--?- 30 -3 LC- reacti ve NST. PEC labs stable from 04/28, has IOL set up for friday. s/sx reviewed to call over the including HTN>140/90, visual changes, headaches and ruq pain. pt and signicant other state understanding. plan cytotec iol NST FHR Rate Baby A Baseline: 135 Variability:: Moderate Accelerations:: 15 x 15 Decelerations:: None NST Reactive:: Yes FHR Category:: Category I ROS Cardiovascular Cardiovascular: Denies abdominal pain, chest pain, diaphoresis or dyspnea Respiratory/Chest Respiratory/Chest: Denies change in mental status, chest congestion, chest tightness, cough, shortness of breath at rest, shortness of breath with exertion, breast mass, breast pain, breast skin changes, breast swelling, change in breast shape or nipple discharge Genitourinary Genitourinary: Reports change in urinary stream Musculoskeletal Musculoskeletal: Reports none Integumentary Integumentary: Reports none Neurologic Neurologic: Reports none Psychiatric Psychiatric: Reports none Endocrine Endocrinology: Reports none Hematologic/Lymphatic Hematologic/Lymphatic: Reports none Allergic/Immunologic Allergic/Immunologic: Reports none Vital Signs Vital Signs Vital Signs: 05/03/24 10:37 05/03/24 10:37 05/03/24 10:42 Temperature Temperature Source Pulse Rate 118 H 103 H Respiratory Rate Blood Pressure BP Systolic BP Diastolic Pulse Ox 97 05/03/24 10:42 05/03/24 10:47 05/03/24 10:47 Temperature Temperature Source Pulse Rate 106 H Respiratory Rate Blood Pressure 118/81 H BP Systolic 118 BP Diastolic 81 Pulse Ox 98 05/03/24 10:47 05/03/24 10:52 05/03/24 10:52 Temperature Temperature Source Pulse Rate 105 H Respiratory Rate Blood Pressure BP Systolic BP Diastolic Pulse Ox 94 99 05/03/24 10:57 05/03/24 10:57 05/03/24 11:02 Temperature Temperature Source Pulse Rate 116 H Respiratory Rate Blood Pressure 124/65 H BP Systolic 124 BP Diastolic 65 Pulse Ox 99 05/03/24 11:02 05/03/24 11:02 05/03/24 11:07 Temperature Temperature Source Pulse Rate 101 H 99 Respiratory Rate Blood Pressure BP Systolic BP Diastolic Pulse Ox 98 05/03/24 11:07 05/03/24 11:12 05/03/24 11:12 Temperature Temperature Source Pulse Rate 105 H Respiratory Rate Blood Pressure BP Systolic BP Diastolic Pulse Ox 98 99 05/03/24 11:16 05/03/24 11:16 05/03/24 11:17 Temperature Temperature Source Pulse Rate 96 96 Respiratory Rate Blood Pressure 105/72 BP Systolic 105 BP Diastolic 72 Pulse Ox 05/03/24 11:17 05/03/24 11:22 05/03/24 11:22 Temperature Temperature Source Pulse Rate 112 H Respiratory Rate Blood Pressure BP Systolic BP Diastolic Pulse Ox 99 100 05/03/24 11:27 05/03/24 11:27 05/03/24 12:54 Temperature Temperature Source Pulse Rate 104 H Respiratory Rate Blood Pressure 116/66 BP Systolic 116 BP Diastolic 66 Pulse Ox 99 05/03/24 12:54 05/03/24 12:54 05/03/24 12:54 Temperature 97.7 F L Temperature Source Tympanic Pulse Rate 102 H Respiratory Rate Blood Pressure BP Systolic BP Diastolic Pulse Ox 05/03/24 12:54 05/03/24 12:54 05/03/24 12:54 Temperature 97.7 F L Temperature Source Pulse Rate Respiratory Rate 16 Blood Pressure BP Systolic BP Diastolic Pulse Ox 98 05/03/24 13:00 05/03/24 13:00 05/03/24 13:05 Temperature Temperature Source Pulse Rate 93 115 H Respiratory Rate Blood Pressure BP Systolic BP Diastolic Pulse Ox 98 05/03/24 13:05 05/03/24 13:10 05/03/24 13:10 Temperature Temperature Source Pulse Rate 90 Respiratory Rate Blood Pressure BP Systolic BP Diastolic Pulse Ox 98 98 05/03/24 13:44 05/03/24 13:44 05/03/24 13:44 Temperature Temperature Source Temporal Pulse Rate 87 Respiratory Rate 14 Blood Pressure BP Systolic BP Diastolic Pulse Ox 05/03/24 13:44 05/03/24 13:44 05/03/24 13:45 Temperature 97.8 F Temperature Source Pulse Rate Respiratory Rate Blood Pressure 123/83 H BP Systolic 123 BP Diastolic 83 Pulse Ox 97 05/03/24 13:45 05/03/24 13:45 05/03/24 13:45 Temperature 97.9 F Temperature Source Pulse Rate 88 Respiratory Rate Blood Pressure BP Systolic BP Diastolic Pulse Ox 97 05/03/24 14:50 05/03/24 14:50 05/03/24 14:50 Temperature 97.2 F L Temperature Source Temporal Pulse Rate 82 Respiratory Rate Blood Pressure BP Systolic BP Diastolic Pulse Ox 05/03/24 14:50 05/03/24 14:50 05/03/24 14:50 Temperature 97.2 F L Temperature Source Pulse Rate Respiratory Rate 16 Blood Pressure BP Systolic BP Diastolic Pulse Ox 96 05/03/24 14:51 05/03/24 14:51 05/03/24 14:51 Temperature Temperature Source Pulse Rate 87 Respiratory Rate Blood Pressure 116/67 BP Systolic 116 BP Diastolic 67 Pulse Ox 96 05/03/24 16:22 05/03/24 16:22 05/03/24 16:22 Temperature 97.5 F L Temperature Source Pulse Rate 88 Respiratory Rate Blood Pressure 137/100 H BP Systolic 137 BP Diastolic 100 Pulse Ox Weight Weight: 322 lb 6 oz Body Mass Index (BMI) 50.5 Physical Exam Const alert, oriented x3 and no apparent distress General Appearance: cooperative, comfortable and well kempt Orientation / Consciousness: awake and oriented to person Exam Limitations: no limitations HEENT normocephalic Neck full ROM Chest inspection of chest normal Resp normal respiratory effort, normal air movement and no retractions Effort and Inspection: able to speak in complete sentences and symmetric chest movement Cardio regular rate Peripheral Pulses: pulses 2+ throughout GI normal to inspection, nondistended, normoactive bowel sounds Inspection: gravid no CVA tenderness and appearance of the vagina normal External Female Exam: normal appearance of the urethra; Negative for external lesion OB / External & Speculum: external exam normal Manual OB Exam: estimated gestational size appropriate and presentation cephalic Uterus Palpation: Negative for uterus tender Extremity normal to inspection Skin no rashes or lesions noted Neuro deep tendon reflexes 2+ bilaterally and gait normal Motor Exam: strength 5/5 throughout and clonus absent Psych Activity / Motor Behavior: appropriate eye contact Speech: normal speech Labs Labs Labs: Blood Type B NEGATIVE Antibody Screen POSITIVE Hct 34.2 % (37-47) L Hgb 10.9 g/dL (12.0-15.0) L Obstetrics Ultrasound Syphilis Total Ab Non-reactive Rubella IgG Antibody Equiv (Nonreactive) Hep Bs Antigen Non-Reactive (Nonreactive) Hepatitis C Antibody Non-Reactive (Nonreactive) Chlamydia DNA (SVETLANA) Negative (Negative) N.gonorrhoeae DNA (SVETLANA) Negative (Negative) HIV 1&2 Antibody Non-Reactive (Nonreactive) Glucose 1 Hr 50 gm 101 mg/dL (70-140) Miscellaneous Test Assessment & Plan (1) Positive GBS test: COMMENT: treat in labor (2) Pre-eclampsia affecting puerperium: COMMENT: BMZ 04/28 and 04/29, recommend repeat nst and bp on friday and IOL at 37 weeks (3) Anti-D antibodies present: COMMENT: observed with labs. She did receive rhogam at 7 weeks. rpt antibody screen in 3rd trimester was negative (4) Marijuana smoker in remission: COMMENT: Quit in July. Random tox screen + at [facility] (5) Rh negative status during : QUALIFIERS: Trimester: second trimester Qualified Code(s): O26.892 - Other specified related conditions, second trimester; Z67.91 - Unspecified blood type, Rh negative COMMENT: Rhogam @ 28 weeks & PRN bleeding (6) History of gestational hypertension: COMMENT: Pre e labs with NOB/nl; To for monitoring, labs, [facility] (7) Supervision of high-risk : QUALIFIERS: Trimester: second trimester Qualified Code(s): O09.92 - Supervision of high risk , unspecified, second trimester COMMENT: PRR, , ZEINAB 05/24/24, DAISY Dueñas (8) : QUALIFIERS: Weeks of gestation: 36 weeks Qualified Code(s): Z3A.36 - 36 weeks gestation of COMMENT: nl anatomy. declines genetic & carrier testing and AFP, MOVED to [place] (9) Encounter for induction of labor: COMMENT: plan cytotec to start PLAN: Plan Patient presents IOL, plan management for with cytotec until matamoros of 6 then transition to pitocin/AROM. Pain management: plans epidural. GBS positive- treat once in active labor or SROM. Management of any complications: none I have reviewed the [facility] and made any clinically relevant updates. Dr. Benitez updated on admission, exam and poc and agrees with midwifery co- management for mild PEC
[2024-05-03 18:34] LABS: Amphetamine Urine VISTA NEGATIVE (<1000 ng/mL); Barbiturate Urine VISTA NEGATIVE (< 200 ng/mL); Benzodiazepine Urine VISTA NEGATIVE (< 200 ng/mL); Cocaine Urine VISTA NEGATIVE (< 300 ng/mL); Ecstacy Urine VISTA NEGATIVE (< 500 ng/mL); Methadone Urine VISTA NEGATIVE (< 300 ng/mL); PCP Urine VISTA NEGATIVE (< 25 ng/mL); THC Urine VISTA NEGATIVE (< 50 ng/mL); Vista UDS pH Range 6
[2024-05-03] MEDS: Lactated Ringers 1,000 ML 50 ML IV (21:44)
[2024-05-03] MEDS: Oxytocin 15 Units/NS 250ml 15 UNITS/250 ML IV.SOLN 2 UNITS IV (21:44)
[2024-05-03] MEDS: LACTATED RINGERS 500 ML 999 ML IV (23:09)
[2024-05-04] VITALS (40 sets, daily range): BP systolic 106–144; BP diastolic 55–89; PULSE 77–110; RESP 16–18; TEMP 35.8–36.4; O2SAT 92–99
[2024-05-04] MEDS: Lactated Ringers 1,000 ML 999 ML IV (00:37)
--- NOTE | 2024-05-04 05:23 | EX.PCM.OBRPT ---
Assessment & Plan (1) Vaginal delivery: COMMENT: LC IOL-mild pec. [place] (2) Pre-eclampsia affecting puerperium: COMMENT: JARED 04/28 and 04/29, recommend repeat nst and bp on friday and IOL at 37 weeks (3) Rh negative status during : QUALIFIERS: Trimester: second trimester Qualified Code(s): O26.892 - Other specified related conditions, second trimester; Z67.91 - Unspecified blood type, Rh negative COMMENT: Rhogam @ 28 weeks & PRN bleeding Maternal Data Information ZEINAB Calculator Estimated Delivery Date Method Current WG Current Estimate 05/24/24 LMP (Certain) 37w 1d Final ZEINAB: 05/24/24 Final ZEINAB Source: LMP Gestational age: 37.1 Vaginal Delivery Maternal Presentation Maternal Presentation: Medically Indicated Induction Maternal Presentation: at 37 weeks with iol for PEC. bp stable during labor, no htn medications required. s/p cytotec x2, AROM and pitocin for labor induction. Type of Induction: Pitocin, Amniotomy and Cytotec Medical Reason for Induction: Preeclampsia, eclampsia Operative Information Date of Procedure: 05/04/24 Pre-Operative Diagnosis: see problem list Post-Operative Diagnosis: Surgery / Procedure Performed: Spontaneous Vaginal Delivery Type of Anesthesia: Epidural Estimated Blood Loss: 100 Time of Delivery: 05:06 Findings Description of Procedure: Patient began pushing and delivered the head in the LUZ presentation. The head was delivered atraumatically. The anterior and posterior shoulders delivered without complication followed by the rest of the infant and the infant was placed on the maternal abdomen. Delayed cord clamping was employed for approximately 3 minutes. Cord was clamped and cut and gentle traction was applied to the cord and the placenta delivered spontaneously immediately following it was noted to be intact with three-vessel cord. The perineum and vagina were inspected and noted to have no laceration. EBL was 100 cc. Patient and infant tolerated delivery well.entered recovery phase bonding skin to skin. dr. zaman updated on delivery. routine pp orders. Presentation: Vertex Amniotic Membrane Rupture Type: Artificial Amniotic Fluid Description: Clear Placental Delivery Description: Spontaneous Placenta Disposition: [facility] Cord Vessel Description: 3 Vessels Cord Entanglement: None A Gender: Male (1 minute): 8 (5 minute): 9 Delayed Cord Clamping: Yes Post Vaginal Delivery Medications Given After Delivery: IV Pitocin Procedures Urinary/Genital 52xxx-59xxx: [id number] Vaginal Delivery global pkg
--- NOTE | 2024-05-04 05:28 | DCINST_ITS ---
Discharge Instructions Diet Discharge Diet: No restrictions Activity Discharge Activity: May Not Drive and May Shower May resume sexual activity in: 6 weeks Weight Bearing Status: Full weight bearing Dressing / Incision Call your doctor if your incision/area has: Sudden Increased Bleeding, Increased Pain/ Swelling and Foul Smelling Discharge Call your doctor if you observe: Fever of 101 or Higher, Numbness or Tingling, Change in Color, Inability to urinate, Inability to have a bowel movement, Using more than 1 pad per hour, Shortness of breath, Dizziness, Fainting spells, Chest pain, Calf discomfort and Uncontrolled pain Follow Up Care Please Follow Up With: Nancy Cm CNM When: 6 weeks , please call office to make an appointment. Congratulations on the of your baby boy!! Test Results: Test results from this visit will be discussed in further detail at your follow- up appointment, if applicable. Discharge Plan Admission Admit Date/Time: 05/03/24 11:08 Attending Provider: Nancy Cm Primary Care Provider: Care Physician,Jenny Primary Discharge Orders/Prescriptions Prescriptions: No Action PNV Tabs 20-1 20 mg iron- 1 mg tablet 1 tab PO DAILY Referrals / Follow Up: Care Physician,No Primary [Primary Care Provider] -
[2024-05-04] MEDS: Oxytocin 15 Units/NS 250ml 15 UNITS/250 ML IV.SOLN 83 UNITS IV (05:44)
[2024-05-04] MEDS: Rho(D) Immune Globulin 300 MCG (1500 Unit) Syringe IV (10:37)
[2024-05-04] MEDS: 0.9% Saline Lock 10 ML Syringe IV (10:40)
[2024-05-04] MEDS: Acetaminophen 500 MG Tablet 1000 MG PO (13:27)
[2024-05-04] MEDS: Naproxen 500 MG Tablet PO (19:41)
[2024-05-05] VITALS (12 sets, daily range): BP systolic 116–143; BP diastolic 63–70; PULSE 76–86; RESP 12–16; TEMP 36.1–36.4; O2SAT 92–98
[2024-05-05] MEDS: MEASLES,MUMPS,RUBELLA VACC/PF 0.5 ML SC (00:26)
--- NOTE | 2024-05-05 07:37 | PN.OBGYN_ITS ---
Subjective Subjective Patient doing well without complaints. Tolerating PO. Ambulating and voiding without difficulty. Feeding well. Denies chest pain, shortness of breath, calf pain/swelling, fevers, chills, lightheadedness. Objective Data Objective Data Vital Signs: Vital Signs Temp Pulse Resp BP Pulse Ox O2 Del Method 97.6 F L 79 16 136/66 H 97 Room Air 05/05/24 05:23 05/05/24 05:23 05/05/24 05:23 05/05/24 05:23 05/05/24 05:23 05/05/24 05:23 Oxygen Delivery Method Room Air Weight: 322 lb 6 oz Body Mass Index (BMI) 50.5 Intake & Output: Intake and Output for Last 24 Hours 05/03/24 05/04/24 05/05/24 23:59 23:59 23:59 Intake Total 500 / 500 1974.10 / 1973.10 Output Total 800 / 800 Balance 500 / 500 1174.10 / 1174.10 Lab / Micro Data Attestation: I reviewed the patient's lab results. 05/03/24 11:30 05/03/24 12:05 Labs: Laboratory Results - last 24 hr 05/04/24 07:30: Screen NEGATIVE, Baby's Blood Type AB POSITIVE, Baby's SHILO NEGATIVE ROS Constitutional Constitutional: Reports systems reviewed and no addt'l complaints, except as documented; Denies anorexia or headache(s) Cardiovascular Cardiovascular: Reports systems reviewed and no addt'l complaints, except as documented; Denies dizziness, dyspnea, nausea or tachypnea Respiratory/Chest Respiratory/Chest: Reports systems reviewed and no addt'l complaints, except as documented; Denies cough, dyspnea, shortness of breath at rest or tachypnea Gastrointestinal Gastrointestinal: Reports systems reviewed and no addt'l complaints, except as documented; Denies abdominal pain, constipation or nausea Genitourinary Genitourinary: Reports systems reviewed and no addt'l complaints, except as documented; Denies burning urination, difficulty urinating, dysuria, urinary frequency or urinary incontinence Musculoskeletal Musculoskeletal: Reports systems reviewed and no addt'l complaints, except as documented Integumentary Integumentary: Reports systems reviewed and no addt'l complaints, except as documented Neurologic Neurologic: Reports systems reviewed and no addt'l complaints, except as documented; Denies abnormal speech, dizziness or headache(s) Psychiatric Psychiatric: Reports systems reviewed and no addt'l complaints, except as documented Endocrine Endocrinology: Reports systems reviewed and no addt'l complaints, except as documented Hematologic/Lymphatic Hematologic/Lymphatic: Reports systems reviewed and no addt'l complaints, except as documented Physical Exam Const alert, oriented x3 and no apparent distress Neck full ROM Resp normal respiratory effort, normal air movement and no retractions Effort and Inspection: able to speak in complete sentences and symmetric chest movement GI soft to palpation Bladder / Kidney Exam: bladder normal to palpation Uterus Palpation: uterus fundus firm Extremity normal to inspection and full ROM Psych mental status grossly normal, thought process normal and cooperative Assessment & Plan (1) Vaginal delivery: COMMENT: LC IOL-mild pec. boy-oswaldo PLAN: s/p PPD # 1 1. routine post delivery care 2. breast feeding- support given 3. rh positive 4. rubella immune 5. Discharge home (2) Positive GBS test: COMMENT: treat in labor (3) Pre-eclampsia affecting puerperium: COMMENT: BMZ 04/28 and 04/29, recommend repeat nst and bp on friday and IOL at 37 weeks (4) Anti-D antibodies present: COMMENT: observed with labs. She did receive rhogam at 7 weeks. rpt antibody screen in 3rd trimester was negative (5) Not immune to rubella: COMMENT: equv. offer MMR PP (6) Obesity: QUALIFIERS: Obesity type: due to excess calories Obesity classification: unspecified obesity classification Serious obesity comorbidity presence: with serious comorbidity Qualified Code(s): E66.09 - Other obesity due to excess calories COMMENT: 41% at NOB. Start weekly NSTs at 34 weeks growth scans q month (7) Hx of incompetent cervix, currently : COMMENT: cervical length q 2 weeks until 24 weeks. no cerclage due to found late, bedrest 16wk cx 3.9cm;US sched 12/29: (8) Marijuana smoker in remission: COMMENT: Quit in July. Random tox screen + at [facility] (9) Cystic fibrosis carrier: COMMENT: encouraged FOB to be tested (10) Cleft lip: COMMENT: Pt born with cleft lip, repaired (11) Hx of depression, currently : COMMENT: mild (12) Rh negative status during : QUALIFIERS: Trimester: second trimester Qualified Code(s): O 26.892 - Other specified related conditions, second trimester; Z67.91 - Unspecified blood type, Rh negative COMMENT: Rhogam @ 28 weeks & PRN bleeding (13) History of gestational hypertension: COMMENT: Pre e labs with NOB/nl; To for monitoring, labs, celestone (14) Supervision of high-risk : QUALIFIERS: Trimester: second trimester Qualified Code(s): O09.92 - Supervision of high risk , unspecified, second trimester COMMENT: PRR, , ZEINAB 05/24/24, PC DAISY Pearson (15) : QUALIFIERS: Weeks of gestation: 36 weeks Qualified Code(s): Z 3A.36 - 36 weeks gestation of COMMENT: nl anatomy. declines genetic & carrier testing and AFP, MOVED to [place] Charges/Coding Multi Select Codes Urinary/Genital Urinary/Genital CPT Codes: No Charge
== END 2024-05-05 18:10 | disposition home or self-care (01) | DRG 560 ==
LOC: WPOUT 11:19 → WP 11:19
PROVIDERS: Admitting Provider Registered Nurse; Referring Provider Registered Nurse; Visit Provider Registered Nurse
DX: O14.04 Mild to moderate pre-eclampsia, complicating childbirth (principal); Z37.0 Single live birth; O99.324 Drug use complicating childbirth; F12.91 Cannabis use, unspecified, in remission; O99.214 Obesity complicating childbirth; O99.824 Streptococcus B carrier state complicating childbirth; E66.09 Other obesity due to excess calories; Z14.1 Cystic fibrosis carrier; Z3A.37 37 weeks gestation of pregnancy
CPT/HCPCS: 59025; 59050; 76815; 80307; 82565; 82570; 84156; 84450; 84460; 84550; 85025; 85461; 86780; 86850; 86870; 86900; 86901; 90384; 99221; J7120; A4216; G0378; J2790; J2791

== ENCOUNTER → 2024-06-14 | Outpatient (CLI) | payer MEDICAID, SELFPAY ==
[2024-06-14 16:36] LABS: Absolute Lymphocyte Count 3.22 X10^3/uL (0.83-4.51); Absolute Neutrophil Count 6.7 X10^3/uL (2.0-7.7); Basophil# 0.03 X10^3/uL; Basophil% 0.3 % (0-1); Eosinophil# 0.09 X10^3/uL; Eosinophils% 0.8 % (0-5); Hematocrit 37.4 % (37-47); Hemoglobin 11.6 g/dL (12.0-15.0); Lymphocyte # 3.22 X10^3/ul (0.83-4.51); Lymphocyte % 30.1 % (19-41); Mean Corpuscular Hgb 24.3 pg (27.0-32.0); Mean Corpuscular Volume 78.4 fL (81-99); Monocyte# 0.67 X10^3/uL; Monocyte% 6.3 % (0-10); NRBC Flagged by Analyzer 0 % (0-5); Neutrophil # 6.65 X10^3/uL (2.7-7.7); Neutrophil % 62.1 % (47-70); Platelet Count 302 K/mm3 (150-450); RBC Distribution Width CV 15.9 % (11.6-14.6); RBC Distribution Width SD 45.4 fl (35.1-43.9); Red Blood Count 4.77 M/mm3 (4.2-5.4); White Blood Count 10.7 K/mm3 (4.4-11.0)
[2024-06-14 16:46] LABS: Internal QC Validated? YES +Cl - CLEAR BKGD; Pregnancy, Serum, hCG Quali. NEGATIVE Negative
[2024-06-14 16:56] LABS: ALB/GLOB Ratio 0.6 RATIO (0.9-2.4); AST(SGOT) 87 U/L (15-37); Alanine Aminotransfer ALT/SGPT 124 U/L (13-56); Albumin, Serum 2.9 g/dL (3.2-5.0); Alkaline Phosphatase 131 U/L (45-117); Anion Gap 6 (5-15); BUN 12 mg/dL (7-18); BUN/Creat Ratio 11.3 RATIO (10-20); Calcium,Total 9.3 mg/dL (8.5-10.1); Chloride 107 mmol/L (98-107); Creatinine, Serum 1.06 mg/dL (0.55-1.02); EST Glomerular Filtration Rate 69 mL/min (>60); Est Glom Filt Rate - Afr Amer 83 mL/min (>60); Globulin 4.7 g/dL (2.2-4.2); Glucose 98 mg/dL (74-106); Potassium 3.7 mmol/L (3.5-5.1); Protein, Total 7.6 g/dL (6.4-8.2); Sodium Level 139 mmol/L (136-145)
== END | disposition home or self-care (01) ==
LOC: LAB 15:28
PROVIDERS: Registered Nurse; Referring Provider Advanced Practice Midwife; Visit Provider Advanced Practice Midwife
DX: O14.95 Unspecified pre-eclampsia, complicating the puerperium (principal); Z3A.00 Weeks of gestation of pregnancy not specified; N91.2 Amenorrhea, unspecified
CPT/HCPCS: 36415; 80053; 84703; 85025

== ENCOUNTER 2024-06-21 12:29 | Outpatient (CLI) | payer MEDICAID, SELFPAY ==
[2024-06-21] VITALS (8 sets, daily range): BP systolic 110–142; BP diastolic 77–92; PULSE 69–83; O2SAT 95; BMI 51.0
[2024-06-21 14:14] LABS: Hematocrit 38.2 % (37-47); Hemoglobin 11.6 g/dL (12.0-15.0); Mean Corp Hgb Conc 30.4 g/dL (32-36); Mean Corpuscular Hgb 24.2 pg (27.0-32.0); Mean Corpuscular Volume 79.6 fL (81-99); Mean Platelet Vol. 10.8 fl (6.2-12.0); Platelet Count 317 K/mm3 (150-450); RBC Distribution Width CV 16.1 % (11.6-14.6); RBC Distribution Width SD 46.3 fl (35.1-43.9); White Blood Count 10.3 K/mm3 (4.4-11.0)
[2024-06-21 14:32] LABS: AST(SGOT) 54 U/L (15-37); Alanine Aminotransfer ALT/SGPT 91 U/L (13-56); Creatinine, Serum 0.67 mg/dL (0.55-1.02); EST Glomerular Filtration Rate 117 mL/min (>60); Est Glom Filt Rate - Afr Amer 141 mL/min (>60); Estimated Creatinine Clearance 199.83 ml/min
--- NOTE | 2024-06-21 15:14 | OB.TRI.HP_ITS ---
HPI - General HPI Narrative DIEGO FAN, is a 24 F who presents 6 weeks with elevated LFTs from outpatient labs. does report mild headaches that are not consistent and has not required intervention for. 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, currently Positive GBS test Not immune to rubella Anti-D antibodies present Pre-eclampsia affecting puerperium 36 weeks gestation of Tongue tied Hx of chlamydia infection Home Medications ?Medication ?Instructions ?Recorded ?Last Taken ?Type vitamins no.163-iron 1 tab PO DAILY 10/17/23 06/20/24 History bis-gly 20 mg-folate no.10 1 mg tablet (PNV Tabs 20-1) sertraline 50 mg tablet (Zoloft) 50 mg PO DAILY #60 tabs 06/14/24 06/20/24 Rx Allergy/AdvReac Type Severity Reaction Status Date / Time codeine Allergy Severe Anaphylaxis Verified 06/14/24 14:48 Family History Mother History of recurrent miscarriages 11 miscarriages- Rh negative Surgical History H/O cleft lip repair Social History adopted: No household members: family number of children: 1 current occupational status: employed current occupation: [employer] current occupational exposures/hazards: No pets and animals: Yes (not managing the litterbox) pets and animals: cat(s) history of recent travel: No sexually active: Yes Smoking Status: Never smoker alcohol intake: never substance use type: marijuana well-balanced diet: rarely or never caffeine: No eating out: 1-3 times/week during the past year weight has: remained stable naomi/sabianist: None seatbelt use: always do you feel safe at home: Yes additional social history: FOB/BF- [employer] History 2 Elective abortions Hx Para 1 Spontaneous abortions Hx # Term Pregnancies Ectopic pregnancies Hx # Pregnancies Multiple births # of living children 2 Past Pregnancies Del. Date Name GA/Weeks Outcome Route Bth Weight Infant Gen Labor Lgth Anesthesia Del Locatn Provider FOB 03/18/22 Michel 37 live - full term 6#4oz Male 20 h rs epidural JARVIS Sahu 05/04/24 [place] live - full term [facility] Nancy Cm Delivery Date: 03/18/22 Last Updated by: Korin Johsnon iol gestational HTN, incompetent cervix 29wks, bedrest Assessment & Plan (1) Pre-eclampsia, : COMMENT: decreasing LFTs with normalized BPs. safe for d/c home. PLAN: Patient presents for triage evaluation secondary to elevated LFTs in outpatient labs. now with decreasing LFTs and reassuring status. Assessment and plan: reassuring maternal status patient discharged to home to follow-up in office with any additional PEC symptoms. See problem list details for additional plan information.
== END 2024-06-21 14:54 | disposition home or self-care (01) ==
LOC: OBT 12:44 → WP 12:46
PROVIDERS: Visit Provider Registered Nurse
DX: O14.95 Unspecified pre-eclampsia, complicating the puerperium (principal); Z3A.00 Weeks of gestation of pregnancy not specified
CPT/HCPCS: 36415; 82565; 84450; 84460; 84550; 85027; 99221; G0378